=== PATIENT | female | born 1965 | race Caucasian/White ===

== ENCOUNTER 2019-05-08 22:34 | Inpatient (IN) | payer BC ==
[~2019-05-08] VITALS: Ht 162.6 cm; Wt 106.2 kg
[~2019-05-08 22:34] MED LIST: ASPI-831 PO; ATOR-2 PO; Insulin Glargine SC; LEVO250T9 PO; LISI-471 PO; METF-849 PO; NAPR220C2 PO; NOVO3I SC
[2019-05-08 22:44] VITALS: Ht 162.6 cm; Wt 106.2 kg
[2019-05-08] MEDS ORDERED: SOD CHLORIDE 0.9% 100 ML ONE (23:55)
[2019-05-08] MEDS ORDERED: IODIXANOL LOCM 100 ML BTL ONE (23:55)
[2019-05-08] MEDS ORDERED: SODIUM CHLORIDE 0.9% 1L BAG IV* STA (23:56)
[2019-05-09] MEDS ORDERED: POTASSIUM CHLORIDE (SR) 20 MEQ TAB PO STA (02:20)
[2019-05-09] MEDS ORDERED: GLUCOSE GEL 15 GRAM TUBE BUCCAL PRN (02:30)
[2019-05-09] MEDS ORDERED: ASPIRIN 81 MG TAB PO ONE (02:30)
[2019-05-09] MEDS ORDERED: ATORVASTATIN 80 MG TAB PO ONE (02:30)
[2019-05-09] MEDS ORDERED: NACL 0.9% 3 ML SYG IV SCH (02:30)
[2019-05-09] MEDS ORDERED: GLUCOSE GEL 15 GRAM TUBE PO PRN ×2 (02:30)
[2019-05-09] MEDS ORDERED: DOCUSATE SODIUM 100 MG CAP PO PRN (02:30)
[2019-05-09] MEDS ORDERED: ONDANSETRON 4 MG INJ IV PRN ×2 (02:30)
[2019-05-09] MEDS ORDERED: ENALAPRILAT 1.25 MG INJ IV PRN (02:30)
[2019-05-09] MEDS ORDERED: DEXTROSE 50% 50 ML SYRINGE IV PRN ×2 (02:30)
[2019-05-09] MEDS ORDERED: ACETAMINOPHEN 325 MG TAB PO PRN ×2 (02:30)
[2019-05-09] MEDS ORDERED: BISACODYL (EC) 5 MG TAB PO PRN (02:30)
[2019-05-09] MEDS ORDERED: GLUCAGON 1 MG INJ IM PRN (02:30)
--- NOTE | 2019-05-09 02:32 | ERD ---
ER Documentation Chief Complaint Chief Complaint BIB FAMILY W/ C/O NOT BEING ABLE TO SPEAK SINCE 10AM HPI This is a 53-year-old female brought in by daughter since she woke up from this morning unable to speak. Apparently she woke up out of bed and was unable to express herself and was unable to even write words. She does understand with family saying. No focal weakness in the extremities. No fevers no chills. No recent or remote head trauma. No other current issues. Patient herself obviously provides very limited history ROS All systems reviewed and are negative except as per history of present illness. Medications Home Meds Reported Medications Naproxen* (Aleve*) 220 Mg Capsule, 220 MG PO BID, #60 CAP 05/09/19 Allergies Allergies: Coded Allergies: No Known Allergy (Unverified , 05/08/19) PMhx/Soc Medical and Surgical Hx: pt denies Medical Hx History of Surgery: Yes (L HIP REPAIR) Hx Alcohol Use: No Hx Substance Use: No Hx Tobacco Use: Yes Smoking Status: Current every day smoker Physical Exam Vitals Vital Signs Date Temp Pulse Resp B/P (MAP) Pulse Ox O2 O2 Flow FiO2 Time Delivery Rate 05/08/19 87 17 137/75 98 Room Air 23:30 (95) 05/08/19 Nasal 2 23:02 Cannula 05/08/19 99.6 104 20 177/92 98 22:44 (120) Physical Exam Const: No acute distress Head: Atraumatic Eyes: Normal Conjunctiva ENT: Normal External Ears, Nose and Mouth. Neck: Full range of motion. No meningismus. Resp: Clear to auscultation bilaterally Cardio: Regular rate and rhythm, no murmurs Abd: Soft, non tender, non distended. Normal bowel sounds Skin: No petechiae or rashes Back: No midline or flank tenderness Ext: No cyanosis, or edema Neur: Awake and alert Psych: Normal Mood and Affect Result Diagram: 05/08/19225405/08/192254 Results 24 hrs Laboratory Tests Test 05/08/19 22:55 05/08/19 22:57 05/09/19 00:25 05/09/19 01:46 White Blood Count 19.2 10^3/ul Red Blood Count 5.33 10^6/ul Hemoglobin 16.0 g/dl Hematocrit 47.3 % Mean Corpuscular 88.7 fl Volume Mean Corpuscular 30.0 pg Hemoglobin Mean Corpuscular 33.8 g/dl Hemoglobin Concent Red Cell 12.2 % Distribution Width Platelet Count 344 10^3/UL Mean Platelet 10.0 fl Volume Immature 0.500 % Granulocytes % Neutrophils % 69.5 % Lymphocytes % 21.5 % Monocytes % 6.6 % Eosinophils % 1.4 % Basophils % 0.5 % Nucleated Red Blood 0.0 /100WBC Cells % Immature 0.100 10^3/ul Granulocytes # Neutrophils # 13.4 10^3/ul Lymphocytes # 4.1 10^3/ul Monocytes # 1.3 10^3/ul Eosinophils # 0.3 10^3/ul Basophils # 0.1 10^3/ul Nucleated Red Blood 0.0 10^3/ul Cells # Prothrombin Time 13.1 Sec Prothrombin Time 1.0 Ratio INR International 0.98 Normalized Ratio Activated 26.1 Sec Partial Thromboplas t Time Sodium Level 139 mmol/L Potassium Level 3.2 mmol/L Chloride Level 101 mmol/L Carbon Dioxide 27 mmol/L Level Anion Gap 11 Blood Urea Nitrogen 12 mg/dl Creatinine 0.52 mg/dl Est Glomerular > 60 mL/min Filtrat Rate mL/min Glucose Level 285 mg/dl Hemoglobin A1c 10.7 % Calcium Level 8.9 mg/dl Total Bilirubin 0.4 mg/dl Direct Bilirubin 0.00 mg/dl Indirect Bilirubin 0.4 mg/dl Aspartate Amino 37 IU/L Transf (AST/SGOT) Alanine 29 IU/L Aminotransferase (A LT/SGPT) Alkaline 172 IU/L Phosphatase Troponin I < 0.012 ng/ml Total Protein 8.4 g/dl Albumin 3.9 g/dl Globulin 4.50 g/dl Albumin/Globulin 0.86 Ratio Triglycerides Level 175 mg/dl Cholesterol Level 225 mg/dl LDL Cholesterol, 151 mg/dl Calculated HDL Cholesterol 39 mg/dl Cholesterol/HDL 5.7 RATIO Ratio Bedside Glucose 278 mg/dL Urine Color YELLOW Urine Clarity CLEAR Urine pH 6.0 Urine Specific 1.005 [place] Urine Ketones NEGATIVE mg/dL Urine Nitrite NEGATIVE mg/dL Urine Bilirubin NEGATIVE mg/dL Urine Urobilinogen NEGATIVE mg/dL Urine Leukocyte 2+ Robyn/ul Esterase Urine Microscopic 2 /HPF RBC Urine Microscopic 5 /HPF WBC Urine Squamous FEW /HPF Epithelial Cells Urine Bacteria FEW /HPF Urine Hemoglobin 1+ mg/dL Urine Glucose 3+ mg/dL Urine Total Protein NEGATIVE mg/dl Urine Opiates NEGATIVE Screen Urine Barbiturates NEGATIVE Urine Amphetamines NEGATIVE Screen Urine NEGATIVE Benzodiazepines Screen Urine Cocaine NEGATIVE Screen Urine Cannabinoids NEGATIVE POC Venous Lactate 1.5 mmol/L Current Medications Medications Dose Sig/Emily Start Time Status Last (Trade) Ordered Route PRN Stop Time Admin Dose Reason Admin Sodium 100 ml @ ud STK-MED 05/08/19 DC 05/09/19 Chloride ONCE .ROUTE 23:55 05/08/19 00:48 23:56 Iodixanol 100 ml STK-MED 05/08/19 DC 05/09/19 (Visipaque ONCE .ROUTE 23:55 05/08/19 00:47 Locm) 23:56 Sodium 3,080 ml BOLUS OVER 2 05/08/19 DC 05/09/19 Chloride HOURS STAT 23:56 05/09/19 00:58 (NS) IV* 00:01 Ondansetron 4 mg ER BRIDGE 05/09/19 HCl (Zofran PRN IV 02:30 05/10/19 Inj) NAUSEA/VOMITI 02:29 NG 650 mg ER BRIDGE 05/09/19 Acetaminophen PRN PO 02:30 05/10/19 (Tylenol .MILD PAIN 02:29 Tab) 1-3 OR TEMP IV Flush 3 ml PER 05/09/19 (NS 3 ml) PROTOCOL IV 02:30 Ondansetron 4 mg Q6H PRN 05/09/19 HCl (Zofran IV 02:30 Inj) NAUSEA/VOMITI NG Aspirin 81 mg DAILY PO 05/09/19 (Aspirin) 09:00 650 mg Q6H PRN 05/09/19 Acetaminophen PO .PAIN 1-3 02:30 (Tylenol OR TEMP Tab) Docusate 100 mg Q12H PRN 05/09/19 Sodium PO 02:30 (Colace) .CONSTIPATION Bisacodyl 5 mg DAILY PRN 05/09/19 (Dulcolax) PO 02:30 .CONSTIPATION Discontinue ONCE ONCE 05/09/19 DC Miscellaneous current oral XX 02:30 05/09/19 sulfonylur... 02:30 Information (* Miscellaneous Pharmacy Order) Diagnostic 1 ea 02 XX 05/10/19 Test (Pha) 02:00 (Accu-Chek) ONCE ONCE 05/09/19 DC Miscellaneous HYPOGLYCEMIA XX 02:30 05/09/19 PROTOCOL 02:30 Information w... (* Miscellaneous Pharmacy Order) Insulin NOVOLOG Q4 SC 05/09/19 DC Aspart *MILD* 05:00 05/09/19 (Novolog ALGORI... 05:00 Insulin Pen) Discontinue ONCE ONCE 05/09/19 DC Miscellaneous all previ... XX 02:30 05/09/19 02:30 Information (* Miscellaneous Pharmacy Order) Ceftriaxone 50 ml @ Q24H IVPB 05/09/19 Sodium 100 mls/hr 02:30 Insulin 10 units DAILY@2000 05/09/19 Glargine SC 20:00 (Lantus) Discontinue ONCE ONCE 05/09/19 DC Miscellaneous current oral XX 02:30 05/09/19 sulfonylur... 02:30 Information (* Miscellaneous Pharmacy Order) Diagnostic 1 ea 02 XX 05/10/19 DC Test (Pha) 02:00 05/10/19 (Accu-Chek) 02:00 ONCE ONCE 05/09/19 DC Miscellaneous HYPOGLYCEMIA XX 02:30 05/09/19 PROTOCOL 02:30 Information w... (* Miscellaneous Pharmacy Order) Insulin NOVOLOG WITH MEALS 05/09/19 Aspart *MILD* BEDTIME SC 08:00 (Novolog ALGORITHM Insulin Pen) Discontinue ONCE ONCE 05/09/19 DC Miscellaneous all previ... XX 02:30 05/09/19 02:30 Information (* Miscellaneous Pharmacy Order) Aspirin 162 mg ONCE ONCE 05/09/19 (Aspirin) PO 02:30 05/09/19 02:31 80 mg ONCE ONCE 05/09/19 Atorvastatin PO 02:30 05/09/19 Calcium 02:31 (Lipitor) 80 mg HS PO 05/10/19 Atorvastatin 21:00 Calcium (Lipitor) Potassium 40 meq ONCE STAT 05/09/19 DC Chloride PO 02:20 05/09/19 (Klor-Con 20) 02:26 Lisinopril 20 mg DAILY PO 05/09/19 (Zestril) 09:00 1 ea NOTE XX 05/09/19 Miscellaneous 02:30 Information Glucose 15 gm Q15M PRN 05/09/19 (Glutose) PO DECREASED 02:30 GLUCOSE Glucose 22.5 gm Q15M PRN 05/09/19 (Glutose) PO DECREASED 02:30 GLUCOSE Dextrose 25 ml Q15M PRN 05/09/19 (D50w IV DECREASED 02:30 Syringe) GLUCOSE Dextrose 50 ml Q15M PRN 05/09/19 (D50w IV DECREASED 02:30 Syringe) GLUCOSE Glucagon 1 mg Q15M PRN 05/09/19 (Glucagen) IM DECREASED 02:30 GLUCOSE Glucose 15 gm Q15M PRN 05/09/19 (Glutose) BUCCAL 02:30 DECREASED GLUCOSE Procedures/MDM EKG: Rate/Rhythm: Normal Sinus Rhythm QRS, ST, T-waves: No changes consistent w/ acute ischemia Impression: No evidence of ischemia or arrhythmia Chest X-ray 1V Interpreted by me: Soft Tissue: No acute abnormalities Bones: No acute abnormalities Mediastinum/Cardiac Silhouette/Lungs: No acute abnormalities CT of the head and CT as you are consistent with a frontal infarct with no evidence of thrombus formation. Ultrasound of the carotids are both negative essentially. Medical decision making: This is a 53-year-old female has evidence of a subacute stroke. She does not meet TPA criteria based on her timeframe, and she also does not meet criteria for endoscopic retrieval class as her CT Denia was negative. Patient will be admitted to telemetry setting to Dr. Newton the hospitalist for further evaluation management and specialist consultation. Critical Care: Time: 45 minutes, independent of any separately billable p rocedural time Treatments/Evaluations: Close monitoring and treatment of unstable vital signs, cardiorespiratory, and neurologic status, while maintaining tight balance of fluid, respiratory, and cardiac interventions. Departure Diagnosis: Primary Impression: Stroke CVA mechanism: unspecified Qualified Codes: I63.9 - Cerebral infarction, unspecified Condition: Critical FERDINAND COLLINS May 09, 2019 02:32
[2019-05-09] MEDS ORDERED: ACCU-CHEK XX SCH (03:00)
[2019-05-09] MEDS ORDERED: INSULIN LISPRO 100 UNIT/ML VIAL SC ONE (03:00)
[2019-05-09 04:00] VITALS: BP 124/56; PULSE 66; RESP 18
[2019-05-09] MEDS ORDERED: INSULIN ASPART [NOVOLOG] 3 ML PEN SC SCH (05:00)
--- NOTE | 2019-05-09 05:25 | HP ---
Date/Time of Note Date/Time of Note DATE: 05/09/19 TIME: 05:24 Assessment/Plan VTE Prophylaxis SCD applied (from Nsg): Yes Pharmacological prophylaxis: NA/contraindicated Pharm contraindication: low risk/ambulating Lines/Catheters IV Catheter Type (from Nrsg): Saline Lock Assessment/Plan Hospital Course This is a 53 a female being admitted to the telemetry floor for: #1 CVA: Patient was not a TPA candidate as she presented outside of the window. CT of the brain did show signs of infarct. We will proceed with an MRI of the brain and MRA of the head and neck. We will give the patient high dose of aspirin along with daily aspirin. Will start on high-dose statin. Hemoglobin A1c 10.7 will need to initiate diabetes medication regimen. PT OT speech therapy evaluation. Permissive hypertension until 12 PM has initial event occurred approximately 10 AM on 05 08. With the first will consult neurology . #2 newly diagnosed diabetes mellitus: Apparently patient does not have a history of diabetes mellitus. Hemoglobin A1c is 10.7. Will initiate the patient on Lantus, insulin sliding scale. We will need to optimize patient's blood sugars during admission. Given likely concurrent hypertension we will also initiate lisinopril to be started at approximately 12 PM to complete the permissive hypertension timeframe #3 uncontrolled hypertension: Currently patient is under permissive hypertension until approximately 12 PM. Will initiate lisinopril given concurrent diabetes. Titrate as indicated. #4 hyperlipidemia: High-dose atorvastatin #5 morbid obesity: We will need to optimize patient's blood sugars, will check a TSH level, initiate statin. Encouraged lifestyle and dietary modification #6 leukocytosis: No signs of acute infection. Patient afebrile. This likely reactive. Will monitor #7 Urinary tract infection: Ceftriaxone IV, await urine culture results #8 DVT GI prophylaxis: SCDs, no GI prophylaxis indicated Further treatment strategy will be implemented as per the clinical course. Result Diagram: 05/08/19225405/08/192254 Results 24hrs Laboratory Tests Test 05/08/19 22:55 05/08/19 22:57 05/09/19 00:25 05/09/19 01:46 White Blood Count 19.2 H Red Blood Count 5.33 Hemoglobin 16.0 Hematocrit 47.3 H Mean Corpuscular Volume 88.7 Mean Corpuscular 30.0 Hemoglobin Mean Corpuscular 33.8 Hemoglobin Concent Red Cell Distribution 12.2 Width Platelet Count 344 Mean Platelet Volume 10.0 Immature Granulocytes % 0.500 H Neutrophils % 69.5 Lymphocytes % 21.5 Monocytes % 6.6 Eosinophils % 1.4 Basophils % 0.5 Nucleated Red Blood 0.0 Cells % Immature Granulocytes # 0.100 H Neutrophils # 13.4 H Lymphocytes # 4.1 H Monocytes # 1.3 H Eosinophils # 0.3 Basophils # 0.1 Nucleated Red Blood 0.0 Cells # Prothrombin Time 13.1 Prothrombin Time Ratio 1.0 INR International 0.98 Normalized Ratio Activated 26.1 Partial Thromboplast Time Sodium Level 139 Potassium Level 3.2 L Chloride Level 101 Carbon Dioxide Level 27 Anion Gap 11 Blood Urea Nitrogen 12 Creatinine 0.52 Est Glomerular Filtrat > 60 Rate mL/min Glucose Level 285 H Hemoglobin A1c 10.7 H Calcium Level 8.9 Total Bilirubin 0.4 Direct Bilirubin 0.00 Indirect Bilirubin 0.4 Aspartate Amino 37 Transf (AST/SGOT) Alanine 29 Aminotransferase (ALT/SG PT) Alkaline Phosphatase 172 H Troponin I < 0.012 Total Protein 8.4 H Albumin 3.9 Globulin 4.50 H Albumin/Globulin Ratio 0.86 Triglycerides Level 175 H Cholesterol Level 225 H LDL Cholesterol, 151 Calculated HDL Cholesterol 39 Cholesterol/HDL Ratio 5.7 Bedside Glucose 278 H Urine Color YELLOW Urine Clarity CLEAR Urine pH 6.0 Urine Specific [place] 1.005 Urine Ketones NEGATIVE Urine Nitrite NEGATIVE Urine Bilirubin NEGATIVE Urine Urobilinogen NEGATIVE Urine Leukocyte Esterase 2+ H Urine Microscopic RBC 2 Urine Microscopic WBC 5 Urine Squamous FEW Epithelial Cells Urine Bacteria FEW A Urine Hemoglobin 1+ H Urine Glucose 3+ H Urine Total Protein NEGATIVE Urine Opiates Screen NEGATIVE Urine Barbiturates NEGATIVE Urine Amphetamines NEGATIVE Screen Urine Benzodiazepines NEGATIVE Screen Urine Cocaine Screen NEGATIVE Urine Cannabinoids NEGATIVE POC Venous Lactate 1.5 HPI/ROS Admit Date/Time Admit Date/Time May 09, 2019 at 02:04 Hx of Present Illness Chief complaint: Unable to speak, right This is a 53-year-old female with apparently no significant past medical history who presented to the emergency department with an inability to speak. Patient presented with her daughter. Patient's daughter reported that approximately yesterday on 05 08 at 10 AM how the last time patient was known known to be at her baseline. She stated that her mom was unable to speak. She was then later on had difficulty writing. Patient at the current time does respond to questions but only with yes and no. He denies any pain. Denies any head trauma. Allergies: NKDA medications: None ROS Const: As per HPI Eyes : No pain discharge or redness or change in visual acuity ENT: No pain, sore throat, congestion, congestion, dysphagia or discharge Respiratory: No shortness of breath, cough, sputum, wheezing, or pleuritic pain Cardiovascular: No chest pain, palpitation, PND, or edema GI : no change in appetite, abdominal pain, nausea, vomiting, diarrhea, constipation, or change in the color his stool Genitourinary: No dysuria, hematuria, flank pain , discharge or CVA tenderness Musculoskeletal: No joint pain, back pain, neck pain, restricted range of motion in neck or joints Skin: No rash, bruising or hives Neuro: As per HPI Endocrine: No polyuria, polydipsia, temperature intolerance Psych: No hallucination, depression, anxiety or suicidal ideation PMH/Family/Social Past Medical History Medical History: no pertinent history Medications Current Medications Ondansetron HCl (Zofran Inj) 4 mg ER BRIDGE PRN IV NAUSEA/VOMITING; Start 05/09 at 02:30; Stop 05/10/19 at 02:29 IV Flush (NS 3 ml) 3 ml PER PROTOCOL IV ; Start 05/09/19 at 02:30 Ondansetron HCl (Zofran Inj) 4 mg Q6H PRN IV NAUSEA/VOMITING; Start 05/09/19 at 02:30 Aspirin (Aspirin) 81 mg DAILY PO ; Start 05/09/19 at 09:00 Acetaminophen (Tylenol Tab) 650 mg Q6H PRN PO .PAIN 1-3 OR TEMP; Start 05/09/19 at 02:30 Docusate Sodium (Colace) 100 mg Q12H PRN PO .CONSTIPATION; Start 05/09/19 at 02:30 Bisacodyl (Dulcolax) 5 mg DAILY PRN PO .CONSTIPATION; Start 05/09/19 at 02:30 Diagnostic Test (Pha) (Accu-Chek) XX ; Start 05/10/19 at 02:00 Ceftriaxone Sodium 50 ml @ 100 mls/hr Q24H IVPB ; Start 05/09/19 at 02:30 Insulin Glargine (Lantus) 10 units DAILY@2000 SC ; Start 05/09/19 at 20:00 Insulin Aspart (Novolog Insulin Pen) NOVOLOG *MILD* ALGORITHM WITH MEALS BEDTIME SC ; Start 05/09/19 at 07:55 Atorvastatin Calcium (Lipitor) 80 mg HS PO ; Start 05/10/19 at 21:00 Lisinopril (Zestril) 20 mg DAILY PO ; Start 05/09/19 at 09:00 Miscellaneous Information 1 ea NOTE XX ; Start 05/09/19 at 02:30 Glucose (Glutose) 15 gm Q15M PRN PO DECREASED GLUCOSE; Start 05/09/19 at 02:30 Glucose (Glutose) 22.5 gm Q15M PRN PO DECREASED GLUCOSE; Start 05/09/19 at 02:30 Dextrose (D50w Syringe) 25 ml Q15M PRN IV DECREASED GLUCOSE; Start 05/09/19 at 02:30 Dextrose (D50w Syringe) 50 ml Q15M PRN IV DECREASED GLUCOSE; Start 05/09/19 at 02:30 Glucagon (Glucagen) 1 mg Q15M PRN IM DECREASED GLUCOSE; Start 05/09/19 at 02:30 Glucose (Glutose) 15 gm Q15M PRN BUCCAL DECREASED GLUCOSE; Start 05/09/19 at 02:30 Enalaprilat (Vasotec Iv) 1.25 mg Q4H PRN IV ELEVATED BLOOD PRESSURE; Start 05/09/19 at 02:30 Coded Allergies: No Known Allergy (Unverified , 05/08/19) Past Surgical History Left hip surgery, x1 Family History Significant Family History: no pertinent family hx Social History Alcohol Use: none Smoking Status: Unknown if ever smoked Drug Use: none Exam/Review of Systems Vital Signs Vitals Vital Signs Date Temp Pulse Resp B/P (MAP) Pulse Ox O2 O2 Flow FiO2 Time Delivery Rate 05/09/19 98.4 66 18 124/56 97 04:00 (78) 05/09/19 Room Air 03:30 05/08/19 2 23:02 Exam Exam General: Currently lying in bed in no acute distress, patient has difficulty verbalizing, she does respond yes and no to questions HEENT: Atraumatic, normocephalic. The pupils are equal, round and reactive. Extraocular motor are intact Neck: Supple with full range of motion. No rigidity or meningismus Chest: Nontender Lungs: Clear to auscultation bilaterally no crackles rales or wheezing Heart: Normal S1-S2, Regular rhythm and rate. No murmur, S3, or S4 Abdomen: Morbidly obese, soft , nontender, nondistended , bowel sounds are present. No guarding no rebound tenderness , No masses or organomegaly. No costovertebral temporal angle mass Extremities: Normal to inspection, no edema no cyanosis Neurologic: Responds to yes and no, otherwise has a aphasia, cranial nerves II through XII are intact, motor and sensory are intact, no focal weakness, no pronator drift, 5 out of 5 strength in bilateral upper and lower extremities. Additional Comments Normal sinus rhythm at approximately 97 bpm, no ST or T wave abnormalities concerning for acute ischemia EKG: PROCEDURE: CT brain without contrast. CLINICAL INDICATION: Stroke. TECHNIQUE: CT scan of the brain was performed on a multi-detector high- resolution CT scanner. Contiguous axial images were obtained from the skull base to the vertex without intravenous contrast. Coronal and sagittal reformatted images were also obtained. Images were reviewed on the PACS workstation. DICOM images are available. One or more of the following dose reduction techniques were used: - Automated exposure control. - Adjustment of the mA and/or kV according to patient size. - Use of iterative reconstruction technique. Exam CTD/vol = 39.64 mGy. Total exam DLP = 713.51 mGy-cm. COMPARISON: None. FINDINGS: There is a poorly defined area of low attenuation within the left frontal lobe involving the cortex. The ventricles and cortical sulci are prominent consistent with mild age related volume loss. There are patchy areas of low attenuation within the periventricular and subcortical white matter consistent with mild chronic ischemic changes secondary to small vessel disease. There is no mass effect or midline shift. There is no intracranial hemorrhage or abnormal extra- axial collection. There are atherosclerotic calcifications within bilateral distal internal carotid arteries. The calvarium is intact. There is no evidence of fracture. Visualized paranasal sinuses and mastoid air cells are clear. IMPRESSION: Left frontal lobe infarct, age indeterminate. Clinical correlation is recom mended and further evaluation can be made by MRI. There is no significant midline shift or intracranial hemorrhage. Mild age related volume loss and chronic ischemic white matter disease. Mild cerebral atherosclerosis. A call report was made to Dr. Collins at 12:50 a.m. .Feliciano Luz MD, MD Date Time Electronically viewed and signed by .Feliciano Luz MD, MD on 05/09/2019 00:52 .T/ CC: FERDINAND COLLINS [id number] PROCEDURE: Ultrasound examination of the carotid arteries with Doppler. CLINICAL INDICATION: Stroke. TECHNIQUE: Real time sonography, color Doppler and spectral the pattern analysis and velocity measurements were performed to evaluate both carotid arterial system. COMPARISON: None. FINDINGS: There is no significant atherosclerotic plaque within the right carotid bifurcation region. There is no significant atherosclerotic plaque within the left carotid bifurcation region. There is no hemodynamically significant caroti d stenosis bilaterally. Antegrade flow is demonstrated within bilateral vertebral arteries. RIGHT PSV (cm/s) EDV (cm/s) ICA/CCA ratio CCA 52.7 16.4 1.3 PICA 80.2 21.9 TOMÁS 80.2 27.4 DICA 75.8 26.3 ECA 116.3 LEFT PSV (cm/s) EDV (cm/s) ICA/CCA ratio CCA 86.7 25.8 1.4 PICA 69.9 24.5 TOMSÁ 76.4 29.7 DICA 85.4 32.3 ECA 115.2 IMPRESSION: No evidence for hemodynamically significant stenosis - validated velocity measurements with angiographic measurements, velocity criteria are extrapolated from diameter data as defined by the Society of Radiologists in Ultrasound Consensus Conference Radiology 2003; 229;340-346. This study does indirectly reference the measurement of the distal ICA diameter as the denominator for stenosis measurement. Antegrade flow within bilateral vertebral arteries. .Feliciano Luz MD, MD Date Time Electronically viewed and signed by .Feliciano Luz MD, MD on 05/08/2019 23:54 .T/ CC: FERDINAND COLLINS [id number] PROCEDURE: Chest. CLINICAL INDICATION: Chest pain. TECHNIQUE: Single frontal view of the chest was obtained. COMPARISON: None. FINDINGS: The cardiac silhouette is within normal limits. The aortic arch is unremarkable. There is no focal consolidation, vascular congestion or pleural effusion. There is no pneumothorax. IMPRESSION: No evidence for active cardiopulmonary disease. .Feliciano Luz MD, MD Date Time Electronically viewed and signed by .Feliciano Luz MD, MD on 05/08/2019 23:23 .T/ CC: FERDINAND COLLINS [id number] ROCEDURE: CT angiogram of the head and neck with contrast. CLINICAL INDICATION: Stroke. TECHNIQUE: CT angiogram of the head and neck was performed on a multi- detector high-resolution CT scanner. Contiguous axial images were obtained after the dynamic injection of 120 cc Visipaque 320 intravenous contrast. Coronal and sagittal as well as maximal intensity projection reformations were obtained. 3-D post processing was also performed. Images were reviewed on a PACS workstation. DICOM images are available. One or more of the following dose reduction techniques were used: - Automated exposure control. - Adjustment of the mA and/or kV according to patient size. - Use of iterative reconstruction technique. Exam CTD/vol = 20.55 mGy. Total exam DLP = 810.61 mGy-cm. COMPARISON: None. FINDINGS: Neck: The visualized aortic arch and proximal great vessels are within normal limits. Bilateral common carotid arteries are normal course and caliber. [place] ateral carotid bulbs and bifurcations are within normal limits. Bilateral internal and external carotid arteries are of normal course and caliber. Bilateral vertebral arteries are of normal course and caliber. There is no significant stenosis or occlusion. There is no evidence of aneurysm or dis section. Brain: Bilateral distal internal carotid arteries are normal course and caliber with scattered atherosclerotic calcifications. Bilateral anterior and middle cerebral arteries are within normal limits. Bilateral distal vertebral arteries are of normal course and caliber. The basilar artery is intact. Bilateral posterior cerebral arteries are within normal limits. There is no significant stenosis or occlusion. There is no evidence of aneurysm or vascular malformation. The venous structures are unremarkable. IMPRESSION: Mild cerebral atherosclerosis. Otherwise unremarkable CT angiogram of the head and neck. No hemodynamically significant carotid stenosis. Direct measurements of vessel diameter was made in reference to measurements of the distal internal carotid artery diameter per NASCET criteria. .Feliciano Luz MD, Date Time Electronically viewed and signed by .Feliciano Luz MD, MD on 05/09/2019 00:52 .T/ CC: FERDINAND COLLINS [id number] VISH POLLOCK May 09, 2019 05:25
[2019-05-09] MEDS: CEFTRIAXONE 1 GM/50 ML (PMX) 50 ML IVPB SCH (06:43)
[2019-05-09 07:54] VITALS: BP 138/63; RESP 18
[2019-05-09] MEDS ORDERED: MAGNESIUM SULFATE 2 GM/50 ML 50 ML IVPB ONE (09:00)
[2019-05-09] MEDS ORDERED: LISINOPRIL 20 MG TAB PO SCH (09:00)
[2019-05-09] MEDS: INSULIN ASPART [NOVOLOG] 3 ML PEN SC SCH ×4 (09:11→21:00)
[2019-05-09] MEDS: ASPIRIN 81 MG TAB PO SCH (09:14)
--- NOTE | 2019-05-09 10:32 | CONSI ---
Assessment/Plan Assessment/Plan Assessment/Plan (Recall) 53 F s/ reported PMHx, who presents for evaluation of sudden aphasia c/f stroke. Head CT confirms age indeterminate L frontal ischemia.. CTA h/n is notable for mild athero.. A1C > 10 LDL > 150 UDS neg P: MRI brain for further characterization (no need for MRAs) Await echo read Add ESR, RPR Agree w/ asa/lipitor for secondary stroke prevention for now Other risk factor modification per primary ST/OT/PT as necessary Will follow Consultation Date/Type/Reason Admit Date/Time May 09, 2019 at 02:04 Type of Consult Neurology Reason for Consultation aphasia Requesting Provider: VISH POLLOCK Date/Time of Note DATE: 05/09/19 TIME: 10:26 Hx of Present Illness Patient is aphasic..unable to contribute a Hx.. It is elsewhere noted: This is a 53-year-old female with apparently no significant past medical history who presented to the emergency department with an inability to speak. Patient presented with her daughter. Patient's daughter reported that approximately yesterday on 05 08 at 10 AM how the last time patient was known known to be at her baseline. She stated that her mom was unable to speak. She was then later on h ad difficulty writing. Patient at the current time does respond to questions but only with yes and no. He denies any pain. Denies any head trauma. limited by aphasia Objective Exam Vitals Vital Signs Date Temp Pulse Resp B/P (MAP) Pulse Ox O2 O2 Flow FiO2 Time Delivery Rate 05/09/19 Room Air 08:25 05/09/19 98.5 18 138/63 94 07:54 (88) 05/09/19 2.0 05:54 05/09/19 66 04:00 Exam PE: Gen Appearance: No Apparent Distress HEENT: Normocephalic Cardiovascular: Regular rate Abdomen: Soft Extremities: Dry NE: The patient was alert.. Language was nonfluent. Fund of knowledge was kolton. Pupils were equal and reactive to light. There was no afferent pupillary defect. Visual landry were normal. Funduscopic examination was limited. Extra-ocular movements were full. Ptosis was absent. There was no nystagmus. Facial sensation was normal. Face was symmetric with normal strength. Hearing was intact. Palate movements were normal. Neck strength was normal. There was normal tongue bulk and speed of movement. Tone was normal. Muscle bulk was normal. I did not see fasciculations. Arms and legs were strong. Vibration sensation was normal. Temperature and pinprick sensation was normal. Rapid alternating movements were normal. There was no dysmetria. There was no intention tremor. Gait was deferred due to bedrest. Arm and leg reflexes were symmetric. Harper's sign was absent. Plantar responses were flexor. Results Result Diagram: 05/09/19 0554 05/09/19 0554 Results 24hrs Laboratory Tests Test 05/08/19 22:55 05/08/19 22:57 05/09/19 00:25 05/09/19 01:46 White Blood Count 19.2 H Red Blood Count 5.33 Hemoglobin 16.0 Hematocrit 47.3 H Mean Corpuscular Volume 88.7 Mean Corpuscular 30.0 Hemoglobin Mean Corpuscular 33.8 Hemoglobin Concent Red Cell Distribution 12.2 Width Platelet Count 344 Mean Platelet Volume 10.0 Immature Granulocytes % 0.500 H Neutrophils % 69.5 Lymphocytes % 21.5 Monocytes % 6.6 Eosinophils % 1.4 Basophils % 0.5 Nucleated Red Blood 0.0 Cells % Immature Granulocytes # 0.100 H Neutrophils # 13.4 H Lymphocytes # 4.1 H Monocytes # 1.3 H Eosinophils # 0.3 Basophils # 0.1 Nucleated Red Blood 0.0 Cells # Prothrombin Time 13.1 Prothrombin Time Ratio 1.0 INR International 0.98 Normalized Ratio Activated 26.1 Partial Thromboplast Time Sodium Level 139 Potassium Level 3.2 L Chloride Level 101 Carbon Dioxide Level 27 Anion Gap 11 Blood Urea Nitrogen 12 Creatinine 0.52 Est Glomerular Filtrat > 60 Rate mL/min Glucose Level 285 H Hemoglobin A1c 10.7 H Calcium Level 8.9 Total Bilirubin 0.4 Direct Bilirubin 0.00 Indirect Bilirubin 0.4 Aspartate Amino 37 Transf (AST/SGOT) Alanine 29 Aminotransferase (ALT/SG PT) Alkaline Phosphatase 172 H Troponin I < 0.012 Total Protein 8.4 H Albumin 3.9 Globulin 4.50 H Albumin/Globulin Ratio 0.86 Triglycerides Level 175 H Cholesterol Level 225 H LDL Cholesterol, 151 Calculated HDL Cholesterol 39 Cholesterol/HDL Ratio 5.7 Bedside Glucose 278 H Urine Color YELLOW Urine Clarity CLEAR Urine pH 6.0 Urine Specific [place] 1.005 Urine Ketones NEGATIVE Urine Nitrite NEGATIVE Urine Bilirubin NEGATIVE Urine Urobilinogen NEGATIVE Urine Leukocyte Esterase 2+ H Urine Microscopic RBC 2 Urine Microscopic WBC 5 Urine Squamous FEW Epithelial Cells Urine Bacteria FEW A Urine Hemoglobin 1+ H Urine Glucose 3+ H Urine Total Protein NEGATIVE Urine Opiates Screen NEGATIVE Urine Barbiturates NEGATIVE Urine Amphetamines NEGATIVE Screen Urine Benzodiazepines NEGATIVE Screen Urine Cocaine Screen NEGATIVE Urine Cannabinoids NEGATIVE POC Venous Lactate 1.5 Test 05/09/19 05:54 05/09/19 08:39 White Blood Count 15.4 H Red Blood Count 4.73 Hemoglobin 14.1 Hematocrit 42.5 Mean Corpuscular Volume 89.9 Mean Corpuscular 29.8 Hemoglobin Mean Corpuscular 33.2 Hemoglobin Concent Red Cell Distribution 12.3 Width Platelet Count 280 Mean Platelet Volume 10.2 Immature Granulocytes % 0.500 H Neutrophils % 66.8 Lymphocytes % 23.5 Monocytes % 6.9 Eosinophils % 1.9 Basophils % 0.4 Nucleated Red Blood 0.0 Cells % Immature Granulocytes # 0.080 H Neutrophils # 10.3 H Lymphocytes # 3.6 H Monocytes # 1.1 H Eosinophils # 0.3 Basophils # 0.1 Nucleated Red Blood 0.0 Cells # Sodium Level 142 Potassium Level 3.2 L Chloride Level 107 Carbon Dioxide Level 29 Anion Gap 6 Blood Urea Nitrogen 7 Creatinine 0.47 Est Glomerular Filtrat > 60 Rate mL/min Glucose Level 180 # Calcium Level 8.0 L Magnesium Level 1.6 L Total Bilirubin 0.6 Direct Bilirubin 0.00 Indirect Bilirubin 0.6 Aspartate Amino 28 Transf (AST/SGOT) Alanine 28 Aminotransferase (ALT/SG PT) Alkaline Phosphatase 129 H Total Protein 6.9 # Albumin 3.0 L Globulin 3.90 H Albumin/Globulin Ratio 0.76 Thyroid Stimulating 1.750 Hormone (TSH) Bedside Glucose 192 Past Medical History Medical History: other (no reported medical Hx..) Home Meds Reported Medications Naproxen* (Aleve*) 220 Mg Capsule, 220 MG PO BID, #60 CAP 05/09/19 Medications Current Medications Ondansetron HCl (Zofran Inj) 4 mg ER BRIDGE PRN IV NAUSEA/VOMITING; Start 05/09/19 at 02:30; Stop 05/10/19 at 02:29 IV Flush (NS 3 ml) 3 ml PER PROTOCOL IV ; Start 05/09/19 at 02:30 Ondansetron HCl (Zofran Inj) 4 mg Q6H PRN IV NAUSEA/VOMITING; Start 05/09/19 at 02:30 Aspirin (Aspirin) 81 mg DAILY PO Last administered on 05/09/19at 09:14; Admin Dose 81 MG; Start 05/09/19 at 09:00 Acetaminophen (Tylenol Tab) 650 mg Q6H PRN PO .PAIN 1-3 OR TEMP; Start 05/09/19 at 02:30 Docusate Sodium (Colace) 100 mg Q12H PRN PO .CONSTIPATION; Start 05/09/19 at 02:30 Bisacodyl (Dulcolax) 5 mg DAILY PRN PO .CONSTIPATION; Start 05/09/19 at 02:30 Diagnostic Test (Pha) (Accu-Chek) 1 ea 02 XX ; Start 05/10/19 at 02:00 Ceftriaxone Sodium 50 ml @ 100 mls/hr Q24H IVPB Last administered on 05/09/19at 06:43; Admin Dose 100 MLS/HR; Start 05/09/19 at 02:30 Insulin Glargine (Lantus) 10 units DAILY@2000 SC ; Start 05/09/19 at 20:00 Insulin Aspart (Novolog Insulin Pen) NOVOLOG *MILD* ALGORITHM WITH MEALS BEDTIME SC Last administered on 05/09/19at 09:11; Admin Dose 2 UNIT; Start 05/09/19 at 07:55 Atorvastatin Calcium (Lipitor) 80 mg HS PO ; Start 05/10/19 at 21:00 Miscellaneous Information 1 ea NOTE XX ; Start 05/09/19 at 02:30 Glucose (Glutose) 15 gm Q15M PRN PO DECREASED GLUCOSE; Start 05/09/19 at 02:30 Glucose (Glutose) 22.5 gm Q15M PRN PO DECREASED GLUCOSE; Start 05/09/19 at 02:30 Dextrose (D50w Syringe) 25 ml Q15M PRN IV DECREASED GLUCOSE; Start 05/09/19 at 02:30 Dextrose (D50w Syringe) 50 ml Q15M PRN IV DECREASED GLUCOSE; Start 05/09/19 at 02:30 Glucagon (Glucagen) 1 mg Q15M PRN IM DECREASED GLUCOSE; Start 05/09/19 at 02:30 Glucose (Glutose) 15 gm Q15M PRN BUCCAL DECREASED GLUCOSE; Start 05/09/19 at 02:30 Enalaprilat (Vasotec Iv) 1.25 mg Q4H PRN IV ELEVATED BLOOD PRESSURE; Start 05/09/19 at 02:30 Magnesium Sulfate 50 ml @ 25 mls/hr ONCE ONCE IVPB Last administered on 05/09/19at 09:13; Admin Dose 25 MLS/HR; Start 05/09/19 at 09:00; Stop 05/09/19 at 10:59 Lisinopril (Zestril) 20 mg DAILY PO ; Start 05/09/19 at 12:00 Allergies: Coded Allergies: No Known Allergy (Unverified , 05/08/19) Social History Alcohol Use: none Smoking Status: Unknown if ever smoked Drug Use: none COREY ANDRES May 09, 2019 10:32
[2019-05-09 11:06] VITALS: BP 122/57; PULSE 74; RESP 18
--- NOTE | 2019-05-09 12:01 | RADRPT ---
Echocardiogram Report Patient Name: CONSUELO JOEPatient ID: [id number] : 10 (53y 9m)Study Date: 05/09/2019 7:26:44 AM Gender: FAccession #: [id number] Tech: JarrodKathleen Bagley [facility] Location: [id number] Ref.Physician: VISH POLLOCK Height(Cm): BSA: Weight(Kg): Quality: AdequateOrder Physician: VISH POLLOCK Account #: Report amended on 2019-05-09 at 2:33 PM: Added/Modified: Atrial Septum: [ADDED] Bubble study: Bubble study was performed with and with out valsalva indicating no evidence of intra atrial shunt. Conclusions: [ADDED] Atrial Septum Findings: Bubble study was performed with and with out valsalva indicating no evidence of intra atrial shunt. [MODIFIED TEXT] Conclusions: Normal left ventricular systolic function. Normal left ventricular cavity size. Normal left ventricular wall thickness. Ejection fraction is visually estimated at 65 %. Tissue Doppler/Mitral Doppler indices are within normal limits. No significant valvular stenosis or regurgitation seen. The estimated Peak RVSP is 24 mmHg. Normal size and normal respiratory collapse consistent with normal right atrial pressure. Bubble study was performed with and with out valsalva indicating no evidence of intra atrial shunt. [MODIFIED TEXT] Conclusions: Normal left ventricular systolic function. Normal left ventricular cavity size. Normal left ventricular wall thickness. Ejection fraction is visually estimated at 65 %. Tissue Doppler/Mitral Doppler indices are within normal limits. No significant valvular stenosis or regurgitation seen. The estimated Peak RVSP is 24 mmHg. Normal size and normal respiratory collapse consistent with normal right atrial pressure. Bubble study was performed with and with out valsalva indicating no evidence of intra atrial shunt. Electronically Signed by: Ok Jacques 2019-05-09 14:33:50 PDT End of Addendum Procedures: Echocardiographic Report: Transthoracic echocardiogram with complete 2D, M-Mode, and doppler examination. Indications: Cerebrovascular Accident. Measurements: 2D/M Mode Doppler Measurement Value Normal Range Measurement Value Normal Range LVIDd 2D 4.4 [ 3.8 - 5.2 ] cm AV Peak Alex 1.7 [ 100.0 - 170.0 ] cm/sec LVIDs 2D 2.3 [ 2.2 - 3.5 ] cm AV Peak PG 12.0 [ 2.0 - 9.0 ] mmHg LVPWd 2D 1.0 [ 0.6 - 0.9 ] cm LVOT Peak Alex 1.2 [ 70.0 - 110.0 ] cm/sec IVSd 2D 1.0 [ 0.6 - 0.9 ] cm LVOT Peak PG 6.0 [ 2.0 - 6.0 ] mmHg AoR Diam 2D 2.7 [ 2.3 - 3.1 ] cm MV E Peak Alex 0.6 [ 60.0 - 130.0 ] cm/sec EDV 2D 89.6 [ 46.0 - 106.0 ] ml MV A Peak Alex 0.9 [ 100.0 - 120.0 ] cm/sec ESV 2D 17.1 [ 14.0 - 42.0 ] ml MV E/A 0.7 [ 0.8 - 1.5 ] ratio EF 2D 80.9 [ 54.0 - 74.0 ] percent MV Decel Time 208 [ 104 - 258 ] msec LA Dimen 2D 3.8 [ 2.7 - 3.8 ] cm Lat E` Alex 0.1 [ 10.0 - 15.0 ] cm/sec Lateral E/E` 6.8 [ 1.0 - 2.0 ] ratio MV E/A 0.7 [ 0.8 - 1.5 ] ratio TR Peak Alex 2.3 [ 100.0 - 280.0 ] cm/sec TR Peak PG 21.0 mmHg RVSP 24.0 [ 10.0 - 36.0 ] mmHg RA Pressure 3.0 mmHg Findings: Left Ventricle: Normal left ventricular systolic function. Normal left ventricular cavity size. Normal left ventricular wall thickness. Ejection fraction is visually estimated at 65 %. Tissue Doppler/Mitral Doppler indices are within normal limits. Right Ventricle: Normal right ventricular size. Normal right ventricular systolic function. Left Atrium: There is mild enlargement of left atrium. Right Atrium: The right atrium is normal in size. Atrial Septum: Bubble study was performed with and with out valsalva indicating no evidence of intra atrial shunt. Mitral Valve: Normal appearance and function of the mitral valve with trace physiologic regurgitation. Aortic Valve: No significant aortic stenosis or insufficiency. Tricuspid Valve: Normal appearance and function of the tricuspid valve with trace physiologic regurgitation. Normal right ventricular systolic pressure. The estimated Peak RVSP is 24 mmHg. Pulmonic Valve: Pulmonic valve not well visualized. Pericardium: Normal pericardium with no significant pericardial effusion. Aorta: Normal aortic root. IVC: Normal size and normal respiratory collapse consistent with normal right atrial pressure. Conclusions: Normal left ventricular systolic function. Normal left ventricular cavity size. Normal left ventricular wall thickness. Ejection fraction is visually estimated at 65 %. Tissue Doppler/Mitral Doppler indices are within normal limits. No significant valvular stenosis or regurgitation seen. The estimated Peak RVSP is 24 mmHg. Normal size and normal respiratory collapse consistent with normal right atrial pressure. Bubble study was performed with and with out valsalva indicating no evidence of intra atrial shunt. Electronically Signed By: Ok Jacques 2019-05-09 14:33:38 PDT
[2019-05-09] MEDS: LISINOPRIL 20 MG TAB PO SCH (12:25)
[2019-05-09] MEDS ORDERED: ENOXAPARIN 40 MG/0.4 ML SYG SC SCH (15:00)
--- NOTE | 2019-05-09 15:01 | PN ---
Date/Time of Note Date/Time of Note DATE: 05/09/19 TIME: 14:51 Assessment/Plan VTE Prophylaxis Risk score (from Ns)>0 risk: 3 SCD applied (from Ns): Yes Pharmacological prophylaxis: LMWH Lines/Catheters IV Catheter Type (from Nrs): Saline Lock Assessment/Plan Assessment/Plan 1. 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 DM, newly diagnosed, increase lantus 3. HTN, controlled 4. Dyslipidemia, on lipitor 5. Hypokalemia, magnesemia, K and Mg given 6. UTI, on rocephin 7. DVT prophylaxis: Result Diagram: 05/09/19 0554 05/09/19 0554 Results 24hrs Laboratory Tests Test 05/08/19 22:55 05/08/19 22:57 05/09/19 00:25 05/09/19 01:46 White Blood Count 19.2 H Red Blood Count 5.33 Hemoglobin 16.0 Hematocrit 47.3 H Mean Corpuscular Volume 88.7 Mean Corpuscular 30.0 Hemoglobin Mean Corpuscular 33.8 Hemoglobin Concent Red Cell Distribution 12.2 Width Platelet Count 344 Mean Platelet Volume 10.0 Immature Granulocytes % 0.500 H Neutrophils % 69.5 Lymphocytes % 21.5 Monocytes % 6.6 Eosinophils % 1.4 Basophils % 0.5 Nucleated Red Blood 0.0 Cells % Immature Granulocytes # 0.100 H Neutrophils # 13.4 H Lymphocytes # 4.1 H Monocytes # 1.3 H Eosinophils # 0.3 Basophils # 0.1 Nucleated Red Blood 0.0 Cells # Prothrombin Time 13.1 Prothrombin Time Ratio 1.0 INR International 0.98 Normalized Ratio Activated 26.1 Partial Thromboplast Time Sodium Level 139 Potassium Level 3.2 L Chloride Level 101 Carbon Dioxide Level 27 Anion Gap 11 Blood Urea Nitrogen 12 Creatinine 0.52 Est Glomerular Filtrat > 60 Rate mL/min Glucose Level 285 H Hemoglobin A1c 10.7 H Calcium Level 8.9 Total Bilirubin 0.4 Direct Bilirubin 0.00 Indirect Bilirubin 0.4 Aspartate Amino 37 Transf (AST/SGOT) Alanine 29 Aminotransferase (ALT/SG PT) Alkaline Phosphatase 172 H Troponin I < 0.012 Total Protein 8.4 H Albumin 3.9 Globulin 4.50 H Albumin/Globulin Ratio 0.86 Triglycerides Level 175 H Cholesterol Level 225 H LDL Cholesterol, 151 Calculated HDL Cholesterol 39 Cholesterol/HDL Ratio 5.7 Bedside Glucose 278 H Urine Color YELLOW Urine Clarity CLEAR Urine pH 6.0 Urine Specific [place] 1.005 Urine Ketones NEGATIVE Urine Nitrite NEGATIVE Urine Bilirubin NEGATIVE Urine Urobilinogen NEGATIVE Urine Leukocyte Esterase 2+ H Urine Microscopic RBC 2 Urine Microscopic WBC 5 Urine Squamous FEW Epithelial Cells Urine Bacteria FEW A Urine Hemoglobin 1+ H Urine Glucose 3+ H Urine Total Protein NEGATIVE Urine Opiates Screen NEGATIVE Urine Barbiturates NEGATIVE Urine Amphetamines NEGATIVE Screen Urine Benzodiazepines NEGATIVE Screen Urine Cocaine Screen NEGATIVE Urine Cannabinoids NEGATIVE POC Venous Lactate 1.5 Test 05/09/19 05:52 05/09/19 05:54 05/09/19 08:39 05/09/19 12:24 Erythrocyte 50 H Sedimentation Rate White Blood Count 15.4 H Red Blood Count 4.73 Hemoglobin 14.1 Hematocrit 42.5 Mean Corpuscular Volume 89.9 Mean Corpuscular 29.8 Hemoglobin Mean Corpuscular 33.2 Hemoglobin Concent Red Cell Distribution 12.3 Width Platelet Count 280 Mean Platelet Volume 10.2 Immature Granulocytes % 0.500 H Neutrophils % 66.8 Lymphocytes % 23.5 Monocytes % 6.9 Eosinophils % 1.9 Basophils % 0.4 Nucleated Red Blood 0.0 Cells % Immature Granulocytes # 0.080 H Neutrophils # 10.3 H Lymphocytes # 3.6 H Monocytes # 1.1 H Eosinophils # 0.3 Basophils # 0.1 Nucleated Red Blood 0.0 Cells # Sodium Level 142 Potassium Level 3.2 L Chloride Level 107 Carbon Dioxide Level 29 Anion Gap 6 Blood Urea Nitrogen 7 Creatinine 0.47 Est Glomerular Filtrat > 60 Rate mL/min Glucose Level 180 # Calcium Level 8.0 L Magnesium Level 1.6 L Total Bilirubin 0.6 Direct Bilirubin 0.00 Indirect Bilirubin 0.6 Aspartate Amino 28 Transf (AST/SGOT) Alanine 28 Aminotransferase (ALT/SG PT) Alkaline Phosphatase 129 H Total Protein 6.9 # Albumin 3.0 L Globulin 3.90 H Albumin/Globulin Ratio 0.76 Thyroid Stimulating 1.750 Hormone (TSH) Bedside Glucose 192 216 Subjective 24 Hr Interval Summary Free Text/Dictation no distress, left hip pain Exam/Review of Systems Exam Vitals Vital Signs Date Temp Pulse Resp B/P (MAP) Pulse Ox O2 O2 Flow FiO2 Time Delivery Rate 05/09/19 Nasal 2.0 12:00 Cannula 8/7/19 99.0 74 18 122/57 95 11:06 (78) Constitutional: alert, well developed Head: normocephalic, atraumatic Eyes: nl conjunctiva, EOMI, nl lids ENMT: nl external ears & nose, nl lips & teeth, nl nasal mucosa & septum Neck: supple, non-tender Respiratory: clear to auscultation, normal air movement; No congested cough, No crackles/rales, No diminished breath sounds, No intercostal retraction, No labored breathing, No respirations, No tactile fremitus, No wheezing, No other Cardiovascular: regular rate and rhythm, nl pulses; No bruits, No diastolic murmur, No edema, No gallop, No irregular rhythm, No jugular venous distention (JVD), No murmurs/extra sounds, No rub, No systolic murmur, No S3, No S4, No other Gastrointestinal: soft, nl liver, spleen, non-tender Musculoskeletal: nl extremities to inspection Extremities: normal pulses; No calf tenderness, No cyanosis, No clubbing, No edema, No pitting pedal edema, No palpable cord, No tenderness, No other Neurological: WEED CUTTER II-XII intact, nl strength, other (aphasia, right facial droop) Results Results 24hrs Laboratory Tests Test 05/08/19 22:55 05/08/19 22:57 05/09/19 00:25 05/09/19 01:46 White Blood Count 19.2 H Red Blood Count 5.33 Hemoglobin 16.0 Hematocrit 47.3 H Mean Corpuscular Volume 88.7 Mean Corpuscular 30.0 Hemoglobin Mean Corpuscular 33.8 Hemoglobin Concent Red Cell Distribution 12.2 Width Platelet Count 344 Mean Platelet Volume 10.0 Immature Granulocytes % 0.500 H Neutrophils % 69.5 Lymphocytes % 21.5 Monocytes % 6.6 Eosinophils % 1.4 Basophils % 0.5 Nucleated Red Blood 0.0 Cells % Immature Granulocytes # 0.100 H Neutrophils # 13.4 H Lymphocytes # 4.1 H Monocytes # 1.3 H Eosinophils # 0.3 Basophils # 0.1 Nucleated Red Blood 0.0 Cells # Prothrombin Time 13.1 Prothrombin Time Ratio 1.0 INR International 0.98 Normalized Ratio Activated 26.1 Partial Thromboplast Time Sodium Level 139 Potassium Level 3.2 L Chloride Level 101 Carbon Dioxide Level 27 Anion Gap 11 Blood Urea Nitrogen 12 Creatinine 0.52 Est Glomerular Filtrat > 60 Rate mL/min Glucose Level 285 H Hemoglobin A1c 10.7 H Calcium Level 8.9 Total Bilirubin 0.4 Direct Bilirubin 0.00 Indirect Bilirubin 0.4 Aspartate Amino 37 Transf (AST/SGOT) Alanine 29 Aminotransferase (ALT/SG PT) Alkaline Phosphatase 172 H Troponin I < 0.012 Total Protein 8.4 H Albumin 3.9 Globulin 4.50 H Albumin/Globulin Ratio 0.86 Triglycerides Level 175 H Cholesterol Level 225 H LDL Cholesterol, 151 Calculated HDL Cholesterol 39 Cholesterol/HDL Ratio 5.7 Bedside Glucose 278 H Urine Color YELLOW Urine Clarity CLEAR Urine pH 6.0 Urine Specific [place] 1.005 Urine Ketones NEGATIVE Urine Nitrite NEGATIVE Urine Bilirubin NEGATIVE Urine Urobilinogen NEGATIVE Urine Leukocyte Esterase 2+ H Urine Microscopic RBC 2 Urine Microscopic WBC 5 Urine Squamous FEW Epithelial Cells Urine Bacteria FEW A Urine Hemoglobin 1+ H Urine Glucose 3+ H Urine Total Protein NEGATIVE Urine Opiates Screen NEGATIVE Urine Barbiturates NEGATIVE Urine Amphetamines NEGATIVE Screen Urine Benzodiazepines NEGATIVE Screen Urine Cocaine Screen NEGATIVE Urine Cannabinoids NEGATIVE POC Venous Lactate 1.5 Test 05/09/19 05:52 05/09/19 05:54 05/09/19 08:39 05/09/19 12:24 Erythrocyte 50 H Sedimentation Rate White Blood Count 15.4 H Red Blood Count 4.73 Hemoglobin 14.1 Hematocrit 42.5 Mean Corpuscular Volume 89.9 Mean Corpuscular 29.8 Hemoglobin Mean Corpuscular 33.2 Hemoglobin Concent Red Cell Distribution 12.3 Width Platelet Count 280 Mean Platelet Volume 10.2 Immature Granulocytes % 0.500 H Neutrophils % 66.8 Lymphocytes % 23.5 Monocytes % 6.9 Eosinophils % 1.9 Basophils % 0.4 Nucleated Red Blood 0.0 Cells % Immature Granulocytes # 0.080 H Neutrophils # 10.3 H Lymphocytes # 3.6 H Monocytes # 1.1 H Eosinophils # 0.3 Basophils # 0.1 Nucleated Red Blood 0.0 Cells # Sodium Level 142 Potassium Level 3.2 L Chloride Level 107 Carbon Dioxide Level 29 Anion Gap 6 Blood Urea Nitrogen 7 Creatinine 0.47 Est Glomerular Filtrat > 60 Rate mL/min Glucose Level 180 # Calcium Level 8.0 L Magnesium Level 1.6 L Total Bilirubin 0.6 Direct Bilirubin 0.00 Indirect Bilirubin 0.6 Aspartate Amino 28 Transf (AST/SGOT) Alanine 28 Aminotransferase (ALT/SG PT) Alkaline Phosphatase 129 H Total Protein 6.9 # Albumin 3.0 L Globulin 3.90 H Albumin/Globulin Ratio 0.76 Thyroid Stimulating 1.750 Hormone (TSH) Bedside Glucose 192 216 Medications Medication Current Medications Ondansetron HCl (Zofran Inj) 4 mg ER BRIDGE PRN IV NAUSEA/VOMITING; Start 05/09/19 at 02:30; Stop 05/10/19 at 02:29 IV Flush (NS 3 ml) 3 ml PER PROTOCOL IV ; Start 05/09/19 at 02:30 Ondansetron HCl (Zofran Inj) 4 mg Q6H PRN IV NAUSEA/VOMITING; Start 05/09/19 at 02:30 Aspirin (Aspirin) 81 mg DAILY PO Last administered on 05/09/19at 09:14; Admin Dose 81 MG; Start 05/09/19 at 09:00 Acetaminophen (Tylenol Tab) 650 mg Q6H PRN PO .PAIN 1-3 OR TEMP; Start 05/09/19 at 02:30 Docusate Sodium (Colace) 100 mg Q12H PRN PO .CONSTIPATION; Start 05/09/19 at 02:30 Bisacodyl (Dulcolax) 5 mg DAILY PRN PO .CONSTIPATION; Start 05/09/19 at 02:30 Diagnostic Test (Pha) (Accu-Chek) 1 ea 02 XX ; Start 05/10/19 at 02:00 Ceftriaxone Sodium 50 ml @ 100 mls/hr Q24H IVPB Last administered on 05/09/19at 06:43; Admin Dose 100 MLS/HR; Start 05/09/19 at 02:30 Insulin Glargine (Lantus) 10 units DAILY@2000 SC ; Start 05/09/19 at 20:00 Insulin Aspart (Novolog Insulin Pen) NOVOLOG *MILD* ALGORITHM WITH MEALS BEDTIME SC Last administered on 05/09/19at 12:32; Admin Dose 2 UNIT; Start at 07:55 Atorvastatin Calcium (Lipitor) 80 mg HS PO ; Start 05/10/19 at 21:00 Miscellaneous Information 1 ea NOTE XX ; Start 05/09/19 at 02:30 Glucose (Glutose) 15 gm Q15M PRN PO DECREASED GLUCOSE; Start 05/09/19 at 02:30 Glucose (Glutose) 22.5 gm Q15M PRN PO DECREASED GLUCOSE; Start 05/09/19 at 02:30 Dextrose (D50w Syringe) 25 ml Q15M PRN IV DECREASED GLUCOSE; Start 05/09/19 at 02:30 Dextrose (D50w Syringe) 50 ml Q15M PRN IV DECREASED GLUCOSE; Start 05/09/19 at 02:30 Glucagon (Glucagen) 1 mg Q15M PRN IM DECREASED GLUCOSE; Start 05/09/19 at 02:30 Glucose (Glutose) 15 gm Q15M PRN BUCCAL DECREASED GLUCOSE; Start 05/09/19 at 02:30 Enalaprilat (Vasotec Iv) 1.25 mg Q4H PRN IV ELEVATED BLOOD PRESSURE; Start 05/09/19 at 02:30 Lisinopril (Zestril) 20 mg DAILY PO Last administered on 05/09/19at 12:25; Admin Dose 20 MG; Start 05/09/19 at 12:00 FELA CARVER MD May 09, 2019 15:01
[2019-05-09 16:37] VITALS: BP 110/60; PULSE 64; RESP 18
[2019-05-09 20:00] VITALS: BP 123/67; PULSE 78; RESP 18
[2019-05-09] MEDS ORDERED: INSULIN GLARGINE [LANTus] (100 UNITS/ML) SYG SC SCH (20:00)
[2019-05-09] MEDS: INSULIN GLARGINE [LANTus] (100 UNITS/ML) SYG SC SCH (23:10)
[2019-05-10] VITALS (7 sets, daily range): BP systolic 89–142; BP diastolic 56–81; PULSE 65–86; RESP 18
[2019-05-10] MEDS: ACCU-CHEK XX SCH (01:24)
[2019-05-10] MEDS ORDERED: ACCU-CHEK XX SCH (02:00)
[2019-05-10] MEDS: CEFTRIAXONE 1 GM/50 ML (PMX) 50 ML IVPB SCH (03:44)
[2019-05-10] MEDS: INSULIN ASPART [NOVOLOG] 3 ML PEN SC SCH ×4 (08:27→20:34)
[2019-05-10] MEDS: ASPIRIN 81 MG TAB PO SCH (10:15)
[2019-05-10] MEDS: LISINOPRIL 20 MG TAB PO SCH (10:16)
--- NOTE | 2019-05-10 10:33 | CONS ---
Assessment/Plan Assessment/Plan Assessment/Plan (Recall) 53 F s/ reported PMHx, who presents for evaluation of sudden aphasia c/f stroke. MRI brain confirms a recent L frontal infarct CTA h/n is notable for mild athero.. TTE is unremarkable A1C > 10 LDL > 150 UDS neg ESR 50 RPR neg P: Agree w/ asa/lipitor for secondary stroke prevention for now ST/OT/PT as necessary Other risk factor modification per primary Consultation Date/Type/Reason Admit Date/Time May 09, 2019 at 02:04 Type of Consult Neurology Reason for Consultation aphasia Requesting Provider: VISH POLLOCK Date/Time of Note DATE: 05/10/19 TIME: 10:30 24 HR Interval Summary Free Text/Dictation s/p MRI brain Exam/Review of Systems Exam Vitals Vital Signs Date Temp Pulse Resp B/P (MAP) Pulse Ox O2 O2 Flow FiO2 Time Delivery Rate 05/10/19 98.2 76 18 133/71 94 Room Air 07:39 (91) 05/09/19 2.0 15:09 Intake and Output 05/09/19 05/09/19 05/10/19 1515:00 23:00 07:00 IntakeIntake Total 50 ml 400 ml 200 ml OutputOutput Total 1 ml BalanceBalance 50 ml 399 ml 200 ml Results Result Diagram: 05/10/19 0552 05/10/19 0552 Results 24hrs Laboratory Tests Test 05/09/19 12:24 05/09/19 17:45 05/09/19 22:01 05/10/19 05:52 Bedside Glucose 216 139 184 White Blood Count 14.5 H Red Blood Count 4.68 Hemoglobin 14.0 Hematocrit 42.6 Mean Corpuscular Volume 91.0 Mean Corpuscular 29.9 Hemoglobin Mean Corpuscular 32.9 Hemoglobin Concent Red Cell Distribution 12.6 Width Platelet Count 276 Mean Platelet Volume 10.5 H Immature Granulocytes % 0.600 H Neutrophils % 67.8 Lymphocytes % 22.1 Monocytes % 6.6 Eosinophils % 2.4 Basophils % 0.5 Nucleated Red Blood 0.0 Cells % Immature Granulocytes # 0.090 H Neutrophils # 9.8 H Lymphocytes # 3.2 H Monocytes # 1.0 H Eosinophils # 0.3 Basophils # 0.1 Nucleated Red Blood 0.0 Cells # Sodium Level 138 Potassium Level 3.5 Chloride Level 101 Carbon Dioxide Level 33 H Anion Gap 4 L Blood Urea Nitrogen 11 Creatinine 0.55 Est Glomerular Filtrat > 60 Rate mL/min Glucose Level 185 Calcium Level 8.5 Magnesium Level 1.9 Total Bilirubin 0.5 Direct Bilirubin 0.00 Indirect Bilirubin 0.5 Aspartate Amino 30 Transf (AST/SGOT) Alanine 22 Aminotransferase (ALT/SG PT) Alkaline Phosphatase 130 H Total Protein 7.1 Albumin 3.1 L Globulin 4.00 H Albumin/Globulin Ratio 0.77 Test 05/10/19 06:02 05/10/19 08:20 Bedside Glucose 170 159 Medications Medication Current Medications IV Flush (NS 3 ml) 3 ml PER PROTOCOL IV ; Start 05/09/19 at 02:30 Ondansetron HCl (Zofran Inj) 4 mg Q6H PRN IV NAUSEA/VOMITING; Start 05/09/19 at 02:30 Aspirin (Aspirin) 81 mg DAILY PO Last administered on 05/10/19at 10:15; Admin Dose 81 MG; Start 05/09/19 at 09:00 Acetaminophen (Tylenol Tab) 650 mg Q6H PRN PO .PAIN 1-3 OR TEMP; Start 05/09/19 at 02:30 Docusate Sodium (Colace) 100 mg Q12H PRN PO .CONSTIPATION; Start 05/09/19 at 02:30 Bisacodyl (Dulcolax) 5 mg DAILY PRN PO .CONSTIPATION; Start 05/09/19 at 02:30 Diagnostic Test (Pha) (Accu-Chek) 1 ea 02 XX ; Start 05/10/19 at 02:00 Ceftriaxone Sodium 50 ml @ 100 mls/hr Q24H IVPB Last administered on 05/10/19at 03:44; Admin Dose 100 MLS/HR; Start 05/09/19 at 02:30 Insulin Aspart (Novolog Insulin Pen) NOVOLOG *MILD* ALGORITHM WITH MEALS BEDTIME SC Last administered on 05/10/19at 08:27; Admin Dose 1 UNIT; Start 05/09/19 at 07:55 Atorvastatin Calcium (Lipitor) 80 mg HS PO ; Start 05/10/19 at 21:00 Miscellaneous Information 1 ea NOTE XX ; Start 05/09/19 at 02:30 Glucose (Glutose) 15 gm Q15M PRN PO DECREASED GLUCOSE; Start 05/09/19 at 02:30 Glucose (Glutose) 22.5 gm Q15M PRN PO DECREASED GLUCOSE; Start 05/09/19 at 02:30 Dextrose (D50w Syringe) 25 ml Q15M PRN IV DECREASED GLUCOSE; Start 05/09/19 at 02:30 Dextrose (D50w Syringe) 50 ml Q15M PRN IV DECREASED GLUCOSE; Start 05/09/19 at 02:30 Glucagon (Glucagen) 1 mg Q15M PRN IM DECREASED GLUCOSE; Start 05/09/19 at 02:30 Glucose (Glutose) 15 gm Q15M PRN BUCCAL DECREASED GLUCOSE; Start 05/09/19 at 02:30 Enalaprilat (Vasotec Iv) 1.25 mg Q4H PRN IV ELEVATED BLOOD PRESSURE; Start 05/09/19 at 02:30 Lisinopril (Zestril) 20 mg DAILY PO Last administered on 05/10/19at 10:16; Admin Dose 20 MG; Start 05/09/19 at 12:00 Insulin Glargine (Lantus) 14 units DAILY@2000 SC Last administered on 05/09/19at 23:10; Admin Dose 14 UNITS; Start 05/09/19 at 20:00 COREY ANDRES May 10, 2019 10:33
--- NOTE | 2019-05-10 14:55 | PN ---
Date/Time of Note Date/Time of Note DATE: 05/10/19 TIME: 14:42 Assessment/Plan VTE Prophylaxis Risk score (from Ns)>0 risk: 3 SCD applied (from Ns): Yes Pharmacological prophylaxis: LMWH Lines/Catheters IV Catheter Type (from Nrsg): Saline Lock Assessment/Plan Assessment/Plan 1. Acute left frontal lobe infarct with expressive aphasia, on aspirin, lipitor, PT/OT/speech 2. DM, newly diagnosed, on lantus, add metformin 3. HTN, increase lisinopril 4. Dyslipidemia, on lipitor 5. Hypokalemia, magnesemia, corrected 6. UTI, on rocephin 7. DVT prophylaxis: lovenox 8. Case management for discharge planning: home PT/OT and speech Result Diagram: 05/10/19 0552 05/10/19 0552 Results 24hrs Laboratory Tests Test 05/09/19 17:45 05/09/19 22:01 05/10/19 05:52 05/10/19 06:02 Bedside Glucose 139 184 170 White Blood Count 14.5 H Red Blood Count 4.68 Hemoglobin 14.0 Hematocrit 42.6 Mean Corpuscular Volume 91.0 Mean Corpuscular 29.9 Hemoglobin Mean Corpuscular 32.9 Hemoglobin Concent Red Cell Distribution 12.6 Width Platelet Count 276 Mean Platelet Volume 10.5 H Immature Granulocytes % 0.600 H Neutrophils % 67.8 Lymphocytes % 22.1 Monocytes % 6.6 Eosinophils % 2.4 Basophils % 0.5 Nucleated Red Blood 0.0 Cells % Immature Granulocytes # 0.090 H Neutrophils # 9.8 H Lymphocytes # 3.2 H Monocytes # 1.0 H Eosinophils # 0.3 Basophils # 0.1 Nucleated Red Blood 0.0 Cells # Sodium Level 138 Potassium Level 3.5 Chloride Level 101 Carbon Dioxide Level 33 H Anion Gap 4 L Blood Urea Nitrogen 11 Creatinine 0.55 Est Glomerular Filtrat > 60 Rate mL/min Glucose Level 185 Calcium Level 8.5 Magnesium Level 1.9 Total Bilirubin 0.5 Direct Bilirubin 0.00 Indirect Bilirubin 0.5 Aspartate Amino 30 Transf (AST/SGOT) Alanine 22 Aminotransferase (ALT/SG PT) Alkaline Phosphatase 130 H Total Protein 7.1 Albumin 3.1 L Globulin 4.00 H Albumin/Globulin Ratio 0.77 Test 05/10/19 08:20 05/10/19 13:04 Bedside Glucose 159 176 Subjective 24 Hr Interval Summary Free Text/Dictation may answer simple questions Exam/Review of Systems Exam Vitals Vital Signs Date Temp Pulse Resp B/P (MAP) Pulse Ox O2 O2 Flow FiO2 Time Delivery Rate 05/10/19 97.8 86 18 142/81 96 Room Air 11:23 (101) 05/09/19 2.0 15:09 Intake and Output 05/09/19 05/09/19 05/10/19 1515:00 23:00 07:00 IntakeIntake Total 50 ml 400 ml 200 ml OutputOutput Total 1 ml BalanceBalance 50 ml 399 ml 200 ml Constitutional: alert, oriented, well developed, obese Psych: no complaints, nl mood/affect Head: normocephalic, atraumatic Eyes: nl conjunctiva, EOMI, nl lids, PERRL ENMT: nl external ears & nose, nl lips & teeth, nl nasal mucosa & septum Neck: supple, non-tender Respiratory: clear to auscultation, normal air movement; No congested cough, No crackles/rales, No diminished breath sounds, No intercostal retraction, No labored breathing, No respirations, No tactile fremitus, No wheezing, No other Cardiovascular: regular rate and rhythm, nl pulses; No bruits, No diastolic murmur, No edema, No gallop, No irregular rhythm, No jugular venous distention (JVD), No murmurs/extra sounds, No rub, No systolic murmur, No S3, No S4, No other Gastrointestinal: soft, nl liver, spleen, non-tender Musculoskeletal: nl extremities to inspection Extremities: normal pulses; No calf tenderness, No cyanosis, No clubbing, No edema, No pitting pedal edema, No palpable cord, No tenderness, No other 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, nl mental status, other (expressive aphasia) Skin: nl turgor Results Results 24hrs Laboratory Tests Test 05/09/19 17:45 05/09/19 22:01 05/10/19 05:52 05/10/19 06:02 Bedside Glucose 139 184 170 White Blood Count 14.5 H Red Blood Count 4.68 Hemoglobin 14.0 Hematocrit 42.6 Mean Corpuscular Volume 91.0 Mean Corpuscular 29.9 Hemoglobin Mean Corpuscular 32.9 Hemoglobin Concent Red Cell Distribution 12.6 Width Platelet Count 276 Mean Platelet Volume 10.5 H Immature Granulocytes % 0.600 H Neutrophils % 67.8 Lymphocytes % 22.1 Monocytes % 6.6 Eosinophils % 2.4 Basophils % 0.5 Nucleated Red Blood 0.0 Cells % Immature Granulocytes # 0.090 H Neutrophils # 9.8 H Lymphocytes # 3.2 H Monocytes # 1.0 H Eosinophils # 0.3 Basophils # 0.1 Nucleated Red Blood 0.0 Cells # Sodium Level 138 Potassium Level 3.5 Chloride Level 101 Carbon Dioxide Level 33 H Anion Gap 4 L Blood Urea Nitrogen 11 Creatinine 0.55 Est Glomerular Filtrat > 60 Rate mL/min Glucose Level 185 Calcium Level 8.5 Magnesium Level 1.9 Total Bilirubin 0.5 Direct Bilirubin 0.00 Indirect Bilirubin 0.5 Aspartate Amino 30 Transf (AST/SGOT) Alanine 22 Aminotransferase (ALT/SG PT) Alkaline Phosphatase 130 H Total Protein 7.1 Albumin 3.1 L Globulin 4.00 H Albumin/Globulin Ratio 0.77 Test 05/10/19 08:20 05/10/19 13:04 Bedside Glucose 159 176 Medications Medication Current Medications IV Flush (NS 3 ml) 3 ml PER PROTOCOL IV ; Start 05/09/19 at 02:30 Ondansetron HCl (Zofran Inj) 4 mg Q6H PRN IV NAUSEA/VOMITING; Start 05/09/19 at 02:30 Aspirin (Aspirin) 81 mg DAILY PO Last administered on 05/10/19at 10:15; Admin Dose 81 MG; Start 05/09/19 at 09:00 Acetaminophen (Tylenol Tab) 650 mg Q6H PRN PO .PAIN 1-3 OR TEMP; Start 05/09/19 at 02:30 Docusate Sodium (Colace) 100 mg Q12H PRN PO .CONSTIPATION; Start 05/09/19 at 02:30 Bisacodyl (Dulcolax) 5 mg DAILY PRN PO .CONSTIPATION; Start 05/09/19 at 02:30 Diagnostic Test (Pha) (Accu-Chek) 1 ea 02 XX ; Start 05/10/19 at 02:00 Ceftriaxone Sodium 50 ml @ 100 mls/hr Q24H IVPB Last administered on 05/10/19at 03:44; Admin Dose 100 MLS/HR; Start 05/09/19 at 02:30 Insulin Aspart (Novolog Insulin Pen) NOVOLOG *MILD* ALGORITHM WITH MEALS BEDTIME SC Last administered on 05/10/19at 13:16; Admin Dose 2 UNIT; Start 05/09/19 at 07:55 Atorvastatin Calcium (Lipitor) 80 mg HS PO ; Start 05/10/19 at 21:00 Miscellaneous Information 1 ea NOTE XX ; Start 05/09/19 at 02:30 Glucose (Glutose) 15 gm Q15M PRN PO DECREASED GLUCOSE; Start 05/09/19 at 02:30 Glucose (Glutose) 22.5 gm Q15M PRN PO DECREASED GLUCOSE; Start 05/09/19 at 02:30 Dextrose (D50w Syringe) 25 ml Q15M PRN IV DECREASED GLUCOSE; Start 05/09/19 at 02:30 Dextrose (D50w Syringe) 50 ml Q15M PRN IV DECREASED GLUCOSE; Start 05/09/19 at 02:30 Glucagon (Glucagen) 1 mg Q15M PRN IM DECREASED GLUCOSE; Start 05/09/19 at 02:30 Glucose (Glutose) 15 gm Q15M PRN BUCCAL DECREASED GLUCOSE; Start 05/09/19 at 02:30 Enalaprilat (Vasotec Iv) 1.25 mg Q4H PRN IV ELEVATED BLOOD PRESSURE; Start 05/09/19 at 02:30 Lisinopril (Zestril) 20 mg DAILY PO Last administered on 05/10/19at 10:16; Admin Dose 20 MG; Start 05/09/19 at 12:00 Insulin Glargine (Lantus) 14 units DAILY@2000 SC Last administered on 05/09/19at 23:10; Admin Dose 14 UNITS; Start 05/09/19 at 20:00 FELA CARVER MD May 10, 2019 14:53
[2019-05-10] MEDS: metFORMIN 500 MG TAB PO SCH (18:41)
[2019-05-10] MEDS: ATORVASTATIN 80 MG TAB PO SCH (20:26)
[2019-05-10] MEDS: INSULIN GLARGINE [LANTus] (100 UNITS/ML) SYG SC SCH (20:35)
[2019-05-11] MEDS: ACCU-CHEK XX SCH (01:54)
[2019-05-11] MEDS: CEFTRIAXONE 1 GM/50 ML (PMX) 50 ML IVPB SCH (02:48)
[2019-05-11 03:43] VITALS: BP 112/55; PULSE 62; RESP 18
[2019-05-11 07:19] VITALS: BP 105/65; PULSE 64; RESP 20
[2019-05-11] MEDS: INSULIN ASPART [NOVOLOG] 3 ML PEN SC SCH ×4 (07:52→20:05)
[2019-05-11] MEDS: metFORMIN 500 MG TAB PO SCH ×2 (07:55→18:03)
[2019-05-11] MEDS: ASPIRIN 81 MG TAB PO SCH (09:00)
[2019-05-11] MEDS ORDERED: ENOXAPARIN 30 MG/0.3 ML SYG SC SCH (09:00)
[2019-05-11] MEDS ORDERED: LISINOPRIL 20 MG TAB PO SCH (09:00)
[2019-05-11 10:59] VITALS: BP 95/61; PULSE 73; RESP 20
--- NOTE | 2019-05-11 13:40 | PN ---
Date/Time of Note Date/Time of Note DATE: 05/11/19 TIME: 13:38 Assessment/Plan VTE Prophylaxis Risk score (from Ns)>0 risk: 1 SCD applied (from Nsg): Yes Pharmacological prophylaxis: LMWH Lines/Catheters IV Catheter Type (from Nrsg): Saline Lock Assessment/Plan Assessment/Plan 1. Acute left frontal lobe infarct with expressive aphasia, on aspirin, lipitor, PT/OT/speech 2. DM, newly diagnosed, on lantus and metformin 3. HTN, on lisinopril 4. Dyslipidemia, on lipitor 5. Hypokalemia, magnesemia, corrected 6. UTI, on rocephin 7. DVT prophylaxis: lovenox 8. OT recommends acute rehab, acute rehab eval Result Diagram: 05/11/1961005/11/19 0611 Results 24hrs Laboratory Tests Test 05/10/19 18:01 05/10/19 20:27 05/11/19 01:53 05/11/19 06:11 Bedside Glucose 135 189 136 White Blood Count 15.9 H Red Blood Count 4.84 Hemoglobin 14.7 Hematocrit 44.5 Mean Corpuscular Volume 91.9 Mean Corpuscular 30.4 Hemoglobin Mean Corpuscular 33.0 Hemoglobin Concent Red Cell Distribution 12.5 Width Platelet Count 312 Mean Platelet Volume 10.5 H Immature Granulocytes % 0.800 H Neutrophils % 67.4 Lymphocytes % 21.4 Monocytes % 7.0 Eosinophils % 2.9 Basophils % 0.5 Nucleated Red Blood 0.0 Cells % Immature Granulocytes # 0.120 H Neutrophils # 10.8 H Lymphocytes # 3.4 H Monocytes # 1.1 H Eosinophils # 0.5 Basophils # 0.1 Nucleated Red Blood 0.0 Cells # Sodium Level 138 Potassium Level 3.5 Chloride Level 101 Carbon Dioxide Level 33 H Anion Gap 4 L Blood Urea Nitrogen 15 Creatinine 0.56 Est Glomerular Filtrat > 60 Rate mL/min Glucose Level 142 # Calcium Level 8.6 Total Bilirubin 0.6 Direct Bilirubin 0.00 Indirect Bilirubin 0.6 Aspartate Amino 34 Transf (AST/SGOT) Alanine 31 Aminotransferase (ALT/SG PT) Alkaline Phosphatase 133 H Total Protein 7.4 Albumin 3.2 L Globulin 4.20 H Albumin/Globulin Ratio 0.76 Test 05/11/19 07:52 05/11/19 12:19 Bedside Glucose 131 126 Subjective 24 Hr Interval Summary Free Text/Dictation patient still has expressive aphasia Exam/Review of Systems Exam Vitals Vital Signs Date Temp Pulse Resp B/P (MAP) Pulse Ox O2 O2 Flow FiO2 Time Delivery Rate 05/11/19 98.0 73 20 95/61 (72) 98 Room Air 10:59 05/10/19 2.0 08:06 Intake and Output 05/10/19 05/10/19 05/11/19 1515:00 23:00 07:00 IntakeIntake Total 300 ml 200 ml BalanceBalance 300 ml 200 ml Constitutional: alert, oriented, well developed Psych: no complaints, nl mood/affect Head: normocephalic, atraumatic Eyes: nl conjunctiva, EOMI, nl lids ENMT: nl external ears & nose, nl lips & teeth, nl nasal mucosa & septum Neck: supple, non-tender Respiratory: clear to auscultation, normal air movement; No congested cough, No crackles/rales, No diminished breath sounds, No intercostal retraction, No labored breathing, No respirations, No tactile fremitus, No wheezing, No other Cardiovascular: regular rate and rhythm, nl pulses; No bruits, No diastolic murmur, No edema, No gallop, No irregular rhythm, No jugular venous distention (JVD), No murmurs/extra sounds, No rub, No systolic murmur, No S3, No S4, No other Gastrointestinal: soft, nl liver, spleen, non-tender Musculoskeletal: nl extremities to inspection Extremities: normal pulses; No calf tenderness, No cyanosis, No clubbing, No edema, No pitting pedal edema, No palpable cord, No tenderness, No other 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, nl mental status, other (expressive aphasia) Results Results 24hrs Laboratory Tests Test 05/10/19 18:01 05/10/19 20:27 05/11/19 01:53 05/11/19 06:11 Bedside Glucose 135 189 136 White Blood Count 15.9 H Red Blood Count 4.84 Hemoglobin 14.7 Hematocrit 44.5 Mean Corpuscular Volume 91.9 Mean Corpuscular 30.4 Hemoglobin Mean Corpuscular 33.0 Hemoglobin Concent Red Cell Distribution 12.5 Width Platelet Count 312 Mean Platelet Volume 10.5 H Immature Granulocytes % 0.800 H Neutrophils % 67.4 Lymphocytes % 21.4 Monocytes % 7.0 Eosinophils % 2.9 Basophils % 0.5 Nucleated Red Blood 0.0 Cells % Immature Granulocytes # 0.120 H Neutrophils # 10.8 H Lymphocytes # 3.4 H Monocytes # 1.1 H Eosinophils # 0.5 Basophils # 0.1 Nucleated Red Blood 0.0 Cells # Sodium Level 138 Potassium Level 3.5 Chloride Level 101 Carbon Dioxide Level 33 H Anion Gap 4 L Blood Urea Nitrogen 15 Creatinine 0.56 Est Glomerular Filtrat > 60 Rate mL/min Glucose Level 142 # Calcium Level 8.6 Total Bilirubin 0.6 Direct Bilirubin 0.00 Indirect Bilirubin 0.6 Aspartate Amino 34 Transf (AST/SGOT) Alanine 31 Aminotransferase (ALT/SG PT) Alkaline Phosphatase 133 H Total Protein 7.4 Albumin 3.2 L Globulin 4.20 H Albumin/Globulin Ratio 0.76 Test 05/11/19 07:52 05/11/19 12:19 Bedside Glucose 131 126 Medications Medication Current Medications IV Flush (NS 3 ml) 3 ml PER PROTOCOL IV ; Start 05/09/19 at 02:30 Ondansetron HCl (Zofran Inj) 4 mg Q6H PRN IV NAUSEA/VOMITING; Start 05/09/19 at 02:30 Aspirin (Aspirin) 81 mg DAILY PO Last administered on 05/11/19at 09:00; Admin Dose 81 MG; Start 05/09/19 at 09:00 Acetaminophen (Tylenol Tab) 650 mg Q6H PRN PO .PAIN 1-3 OR TEMP; Start 05/09/19 at 02:30 Docusate Sodium (Colace) 100 mg Q12H PRN PO .CONSTIPATION; Start 05/09/19 at 02:30 Bisacodyl (Dulcolax) 5 mg DAILY PRN PO .CONSTIPATION; Start 05/09/19 at 02:30 Diagnostic Test (Pha) (Accu-Chek) 1 ea 02 XX Last administered on 05/11/19at 01:54; Admin Dose 1 EA; Start 05/10/19 at 02:00 Ceftriaxone Sodium 50 ml @ 100 mls/hr Q24H IVPB Last administered on 05/11/19at 02:48; Admin Dose 100 MLS/HR; Start 05/09/19 at 02:30 Insulin Aspart (Novolog Insulin Pen) NOVOLOG *MILD* ALGORITHM WITH MEALS BEDTIME SC Last administered on 05/10/19 20:34; Admin Dose 1 UNIT; Start 05/09/19 at 07:55 Atorvastatin Calcium (Lipitor) 80 mg HS PO Last administered on 05/10/19 20:26; Admin Dose 80 MG; Start 05/10/19 at 21:00 Miscellaneous Information 1 ea NOTE XX ; Start 05/09/19 at 02:30 Glucose (Glutose) 15 gm Q15M PRN PO DECREASED GLUCOSE; Start 05/09/19 at 02:30 Glucose (Glutose) 22.5 gm Q15M PRN PO DECREASED GLUCOSE; Start 05/09/19 at 02:30 Dextrose (D50w Syringe) 25 ml Q15M PRN IV DECREASED GLUCOSE; Start 05/09/19 at 02:30 Dextrose (D50w Syringe) 50 ml Q15M PRN IV DECREASED GLUCOSE; Start 05/09/19 at 02:30 Glucagon (Glucagen) 1 mg Q15M PRN IM DECREASED GLUCOSE; Start 05/09/19 at 02:30 Glucose (Glutose) 15 gm Q15M PRN BUCCAL DECREASED GLUCOSE; Start 05/09/19 at 02:30 Enalaprilat (Vasotec Iv) 1.25 mg Q4H PRN IV ELEVATED BLOOD PRESSURE; Start 05/09/19 at 02:30 Insulin Glargine (Lantus) 14 units DAILY@2000 SC Last administered on 05/10/19at 20:35; Admin Dose 14 UNITS; Start 05/09/19 at 20:00 Metformin HCl (Glucophage) 500 mg BID WITH MEALS PO Last administered on 05/11/19at 07:55; Admin Dose 500 MG; Start 05/10/19 at 17:55 Enoxaparin Sodium (Lovenox) 30 mg DAILY SC Last administered on 05/11/19 09:00; Admin Dose 30 MG; Start 05/11/19 at 09:00 Lisinopril (Zestril) 20 mg DAILY PO ; Start 05/12/19 at 09:00 FELA CARVER MD May 11, 2019 13:40
[2019-05-11 15:13] VITALS: BP 81/45; PULSE 75; RESP 18
--- NOTE | 2019-05-11 15:38 | DS ---
Date/Time of Note Date/Time of Note DATE: 05/11/19 TIME: 15:33 Discharge Summary Admission/Discharge Info Admit Date/Time May 09, 2019 at 02:04 Discharge Date/Time Discharge Diagnosis 1. Acute left frontal lobe infarct with expressive aphasia, on aspirin, lipitor, PT/OT/speech 2. DM, newly diagnosed, stable on lantus and metformin 3. HTN, on lisinopril 4. Dyslipidemia, on lipitor 5. Hypokalemia, magnesemia, corrected 6. UTI, on levaquin for 5 days Patient Condition: Stable Hospital Course This is a 53-year-old female with apparently no significant past medical history who presented to the emergency department with an inability to speak. Patient presented with her daughter. Patient's daughter reported that approximately yesterday on 05 08 at 10 AM how the last time patient was known known to be at her baseline. She stated that her mom was unable to speak. She was then later on had difficulty writing. Patient at the current time does respond to questions but only with yes and no. He denies any pain. Denies any head trauma. Physical exam patient has expressive aphasia but no focal deficit. CT and MRI head revealed 5 cm recent infarct involving the dorsal portion of the left frontal lobe and left inferior frontal gyrus, blood degradation products are present within the infarcted territory.Patient is getting aspirain and lipitor, along with PT/OT and speech therapy. Symptom is slowing improving. She will be transferred to acute rehab today. Patient has DM, HTN and dyslipidemia that she has never been treated. Blood pressure is controlled with lisinopril. Patient is on metformin and lantus for DM, and lipitor for dyslipidemia. Patient will follow up with PCP to adjust treatment. Home Meds Active Scripts Levofloxacin* (Levofloxacin*) 250 Mg Tablet, 250 MG PO DAILY for 5 Days, TAB Prov:FELA CARVER MD 05/11/19 Aspirin (Aspirin) 81 Mg Chew, 81 MG PO DAILY for 30 Days, TAB Prov:FELA CARVER MD 05/11/19 Metformin* (Glucophage*) 500 Mg Tab, 500 MG PO BID WITH MEALS for 30 Days, TAB Prov:FELA CARVER MD 05/11/19 [Insulin Glargine] 100 UNITS/ML SOLN No Conflict Check, 14 UNITS SC DAILY@1999 Prov:FELA CARVER MD 05/11/19 Insulin Aspart* (Novolog Insulin Pen*) 100 Unit/Ml Soln, 0 UNIT SC WITH MEALS BEDTIME for 30 Days Prov:FELA CARVER MD 05/11/19 Lisinopril* (Lisinopril*) 20 Mg Tablet, 20 MG PO DAILY for 30 Days, TAB Prov:FELA CARVER MD 05/11/19 Atorvastatin* (Atorvastatin*) 80 Mg Tablet, 80 MG PO HS for 30 Days, TAB Prov:FELA CARVER MD 05/11/19 Discontinued Reported Medications Naproxen* (Aleve*) 220 Mg Capsule, 220 MG PO BID, #60 CAP 05/09/19 Follow-up Plan PCP and neurology in tone week Primary Care Provider Syed Mancia MD Pending Labs Laboratory Tests Test 05/10/19 18:01 05/10/19 20:27 05/11/19 01:53 05/11/19 06:11 Bedside 135 189 136 Glucose mg/dL (70-220) mg/dL (70-220) mg/dL (70-220) White Blood 15.9 Count 10^3/ul (4.8-1 0.8) Red Blood 4.84 Count 10^6/ul (4.20- 5.40) Hemoglobin 14.7 g/dl (12.0-16. 0) Hematocrit 44.5 % (37.0-47.0) Mean 91.9 Corpuscular fl (82.0-101.0 Volume ) Mean 30.4 Corpuscular pg (29.0-33.0) Hemoglobin Mean 33.0 Corpuscular g/dl (32.0-37. Hemoglobin Conc 0) ent Red Cell 12.5 Distribution % (11.5-14.5) Width Platelet Count 312 10^3/UL (140-4 15) Mean Platelet 10.5 Volume fl (7.4-10.4) Immature 0.800 Granulocytes % % (0.001-0.429 ) Neutrophils % 67.4 % (39.0-77.0) Lymphocytes % 21.4 % (15.0-51.0) Monocytes % 7.0 % (0.0-11.0) Eosinophils % 2.9 % (0.0-7.0) Basophils % 0.5 % (0.0-2.0) Nucleated Red 0.0 Blood Cells % /100WBC (0.0-0 .0) Immature 0.120 Granulocytes # 10^3/ul (0.0-0 .031) Neutrophils # 10.8 10^3/ul (1.6-7 .5) Lymphocytes # 3.4 10^3/ul (0.8-2 .9) Monocytes # 1.1 10^3/ul (0.3-0 .9) Eosinophils # 0.5 10^3/ul (0.0-0 .5) Basophils # 0.1 10^3/ul (0.0-0 .1) Nucleated Red 0.0 Blood Cells # 10^3/ul (0.0-0 .0) Sodium Level 138 mmol/L (135-14 4) Potassium 3.5 Level mmol/L (3.5-5. 1) Chloride Level 101 mmol/L (97-110 ) Carbon Dioxide 33 Level mmol/L (21-31) Anion Gap 4 (5-13) Blood Urea 15 Nitrogen mg/dl (7-20) Creatinine 0.56 mg/dl (0.44-1. 00) Est Glomerular > 60 Filtrat mL/min (>60) Rate mL/min Glucose Level 142 mg/dl (70-220) Calcium Level 8.6 mg/dl (8.4-10. 2) Total 0.6 Bilirubin mg/dl (0.2-1.3 ) Direct 0.00 Bilirubin mg/dl (0.00-0. 20) Indirect 0.6 Bilirubin mg/dl (0-1.1) Aspartate Amino 34 Transf (AST/SGO IU/L (15-46) T) Alanine 31 Aminotransferas IU/L (13-69) e (ALT/SGPT) Alkaline 133 Phosphatase IU/L (42-121) Total Protein 7.4 g/dl (6.1-8.1) Albumin 3.2 g/dl (3.3-4.9) Globulin 4.20 g/dl (1.3-3.2) Albumin/Globuli 0.76 n Ratio Test 05/11/19 07:52 05/11/19 12:19 Bedside 131 126 Glucose mg/dL (70-220) mg/dL (70-220) FELA CARVER MD May 11, 2019 15:38
[2019-05-11 19:30] VITALS: BP 91/53; PULSE 73; RESP 18
[2019-05-11] MEDS: ATORVASTATIN 80 MG TAB PO SCH (20:05)
[2019-05-11] MEDS: INSULIN GLARGINE [LANTus] (100 UNITS/ML) SYG SC SCH (20:31)
[2019-05-11 20:53] VITALS: BP 115/61; PULSE 73; RESP 18
[2019-05-12] MEDS ORDERED: LISINOPRIL 20 MG TAB PO SCH (09:00)
== END 2019-05-11 21:30 | DRG 65 ==
LOC: EDBD 22:34 → E/R 22:34 → TEL 05-09 02:04
PROVIDERS: ADMIT Family Medicine; ATTEND Internal Medicine
DX: I63.9 Cerebral infarction, unspecified (principal); Z68.41 Body mass index [BMI] 40.0-44.9, adult; N39.0 Urinary tract infection, site not specified; E11.8 Type 2 diabetes mellitus with unspecified complications; E66.01 Morbid (severe) obesity due to excess calories; R47.01 Aphasia; Z71.3 Dietary counseling and surveillance; B95.1 Streptococcus, group B, as the cause of diseases classified elsewhere; Z79.4 Long term (current) use of insulin; Z79.82 Long term (current) use of aspirin
CPT/HCPCS: 36415; 70450; 70496; 70498; 70551; 71045; 80053; 80061; 80307; 81001; 82306; 82962; 83036; 83605; 83735; 84443; 84484; 85025; 85610; 85651; 85730; 86592; 87086; 92507; 92523; 92610; 93005; 93306; 93880; 97110; 97116; 97163; 97165; 97530; J0696; J1650; J1815; J3475; J7030; Q9967

== ENCOUNTER 2019-05-11 17:35 | Inpatient (IN) | payer BC ==
[~2019-05-11] VITALS: Ht 167.6 cm; Wt 101.6 kg
[2019-05-11 21:50] VITALS: BP 109/63; PULSE 71; RESP 18
[2019-05-11] MEDS ORDERED: MAGNESIUM HYDROXIDE 30ML CUP PO PRN (22:30)
[2019-05-11] MEDS ORDERED: PENDING SANTYL ORDER FOR WOUND CARE XX PRN (22:30)
[2019-05-11] MEDS ORDERED: LACTULOSE 30ML CUP PO PRN (22:30)
[2019-05-11] MEDS ORDERED: ACETAMINOPHEN 325 MG TAB PO PRN (22:30)
[2019-05-11] MEDS ORDERED: ENALAPRILAT 1.25 MG INJ IV PRN (22:30)
[2019-05-11] MEDS ORDERED: BISACODYL 10 MG SUPP PR PRN (22:30)
[2019-05-11] MEDS ORDERED: ONDANSETRON 4 MG INJ IV PRN (22:30)
[2019-05-11 23:00] VITALS: Ht 167.6 cm; Wt 101.6 kg
[2019-05-11] MEDS ORDERED: GLUCOSE GEL 15 GRAM TUBE BUCCAL PRN (23:00)
[2019-05-11] MEDS ORDERED: DEXTROSE 50% 50 ML SYRINGE IV PRN ×2 (23:00)
[2019-05-11] MEDS ORDERED: GLUCOSE GEL 15 GRAM TUBE PO PRN ×2 (23:00)
[2019-05-11] MEDS ORDERED: GLUCAGON 1 MG INJ IM PRN (23:00)
[2019-05-11] MEDS ORDERED: NACL 0.9% 3 ML SYG IV PRN (23:30)
[2019-05-11] MEDS ORDERED: DEXTROSE 5%-0.45% NACL 1,000 ML IV SCH (23:30)
[2019-05-12] MEDS: morphine 2 MG INJ IV PRN ×3 (01:48→20:49)
[2019-05-12 02:00] VITALS: BP 114/64; PULSE 75; RESP 18
[2019-05-12] MEDS: ACCU-CHEK XX SCH (02:00)
[2019-05-12 08:24] VITALS: BP 112/58; PULSE 82; RESP 18
[2019-05-12] MEDS: metFORMIN 500 MG TAB PO SCH ×2 (09:07→17:19)
[2019-05-12] MEDS: ENOXAPARIN 30 MG/0.3 ML SYG SC SCH (09:12)
[2019-05-12] MEDS: INSULIN ASPART [NOVOLOG] 3 ML PEN SC SCH ×4 (09:12→20:41)
[2019-05-12] MEDS: DOCUSATE SODIUM 100 MG CAP PO SCH ×2 (09:13→20:38)
[2019-05-12] MEDS: ASPIRIN 81 MG TAB PO SCH (09:13)
[2019-05-12] MEDS: LISINOPRIL 20 MG TAB PO SCH (09:14)
[2019-05-12] MEDS: CEFTRIAXONE 1 GM/50 ML (PMX) 50 ML IVPB SCH (09:17)
[2019-05-12 13:46] VITALS: BP 91/55; PULSE 79; RESP 17
[2019-05-12 19:16] VITALS: BP 110/65; PULSE 81; RESP 18
[2019-05-12] MEDS: GABAPENTIN 300 MG CAP PO SCH (20:38)
[2019-05-12] MEDS: INSULIN GLARGINE [LANTus] (100 UNITS/ML) SYG SC SCH (20:40)
[2019-05-12] MEDS: BETAMETHASONE/CLOTRIMAZOLE 15 GM CR TOP SCH (20:41)
[2019-05-12] MEDS: ATORVASTATIN 80 MG TAB PO SCH (20:48)
[2019-05-12] MEDS: SENNA TAB PO SCH (20:54)
[2019-05-13 02:00] VITALS: BP 109/63; PULSE 77; RESP 18
[2019-05-13] MEDS: ACCU-CHEK XX SCH (02:19)
[2019-05-13 07:00] VITALS: BP 99/56; PULSE 75; RESP 18
[2019-05-13] MEDS: INSULIN ASPART [NOVOLOG] 3 ML PEN SC SCH ×4 (07:29→21:00)
[2019-05-13] MEDS: metFORMIN 500 MG TAB PO SCH ×2 (07:29→17:23)
[2019-05-13] MEDS: GABAPENTIN 100 MG CAP PO SCH ×2 (07:29→12:00)
[2019-05-13] MEDS: morphine 2 MG INJ IV PRN ×4 (07:30→22:23)
[2019-05-13 08:30] VITALS: BP 108/68; PULSE 79
[2019-05-13] MEDS: DOCUSATE SODIUM 100 MG CAP PO SCH ×3 (08:31→21:00)
[2019-05-13] MEDS: ASPIRIN 81 MG TAB PO SCH (08:31)
[2019-05-13] MEDS: ENOXAPARIN 30 MG/0.3 ML SYG SC SCH (08:32)
[2019-05-13] MEDS: CAPSAICIN 0.025% 60 GM CR TOP SCH ×3 (08:34→21:08)
[2019-05-13] MEDS: CEFTRIAXONE 1 GM/50 ML (PMX) 50 ML IVPB SCH (08:36)
[2019-05-13] MEDS: BETAMETHASONE/CLOTRIMAZOLE 15 GM CR TOP SCH ×2 (08:44→21:07)
[2019-05-13] MEDS: LISINOPRIL 20 MG TAB PO SCH (09:00)
[2019-05-13] MEDS ORDERED: ERGOCALCIFEROL (8000 UNITS/ML PO SYG) PO ONE (12:00)
[2019-05-13 14:00] VITALS: BP 111/69; PULSE 75; RESP 18
[2019-05-13 20:00] VITALS: BP 107/59; PULSE 83; RESP 18
[2019-05-13] MEDS: SENNA TAB PO SCH (21:00)
[2019-05-13] MEDS: ATORVASTATIN 80 MG TAB PO SCH (21:06)
[2019-05-13] MEDS: INSULIN GLARGINE [LANTus] (100 UNITS/ML) SYG SC SCH (21:06)
[2019-05-13] MEDS: GABAPENTIN 300 MG CAP PO SCH (21:06)
[2019-05-14] MEDS: ACCU-CHEK XX SCH (02:00)
[2019-05-14 02:10] VITALS: BP 109/64; PULSE 79; RESP 16
[2019-05-14 07:00] VITALS: BP 115/67; PULSE 77; RESP 18
[2019-05-14] MEDS: INSULIN ASPART [NOVOLOG] 3 ML PEN SC SCH ×4 (07:35→21:00)
[2019-05-14] MEDS: GABAPENTIN 100 MG CAP PO SCH ×2 (07:50→11:57)
[2019-05-14] MEDS: metFORMIN 500 MG TAB PO SCH ×2 (07:50→17:28)
[2019-05-14] MEDS: CEFTRIAXONE 1 GM/50 ML (PMX) 50 ML IVPB SCH (08:32)
[2019-05-14] MEDS: LISINOPRIL 20 MG TAB PO SCH (08:32)
[2019-05-14] MEDS: ASPIRIN 81 MG TAB PO SCH (08:32)
[2019-05-14] MEDS: ENOXAPARIN 30 MG/0.3 ML SYG SC SCH (08:33)
[2019-05-14] MEDS: BETAMETHASONE/CLOTRIMAZOLE 15 GM CR TOP SCH ×2 (08:34→21:21)
[2019-05-14] MEDS: CAPSAICIN 0.025% 60 GM CR TOP SCH ×3 (08:34→21:22)
[2019-05-14] MEDS: DOCUSATE SODIUM 100 MG CAP PO SCH ×2 (08:36→21:00)
[2019-05-14 14:00] VITALS: BP_SYST 125; BP_SYST 135; BP_DIAS 70; BP_DIAS 76; PULSE 74; PULSE 76; RESP 18
[2019-05-14] MEDS ORDERED: VANCOMYCIN IV PER PHARMACY XX SCH (15:00)
[2019-05-14] MEDS ORDERED: HYDROCODONE/APAP (5/325) TAB PO PRN (15:00)
[2019-05-14] MEDS ORDERED: VANCOMYCIN HCL 2 GM in SOD CHLORIDE 0.9% 500 ML IVPB SCH (17:00)
[2019-05-14 20:00] VITALS: BP 116/56; PULSE 85; RESP 18
[2019-05-14] MEDS: SENNA TAB PO SCH (21:00)
[2019-05-14] MEDS: INSULIN GLARGINE [LANTus] (100 UNITS/ML) SYG SC SCH (21:18)
[2019-05-14] MEDS: HYDROCODONE/APAP (5/325) TAB NGT PRN (21:20)
[2019-05-14] MEDS: MUPIROCIN 2% 22 GM OINT TOP SCH (21:22)
[2019-05-14] MEDS: GABAPENTIN 300 MG CAP PO SCH (21:23)
[2019-05-14] MEDS: ATORVASTATIN 80 MG TAB PO SCH (21:23)
[2019-05-14] MEDS ORDERED: HYDROCORTISONE 0.5% 28.35 GM OINT TOP SCH (22:30)
[2019-05-14] MEDS: HYDROCORTISONE 0.5% 28.35 GM CR TOP SCH (23:00)
[2019-05-15 02:00] VITALS: BP 98/54; PULSE 85; RESP 18
[2019-05-15] MEDS: ACCU-CHEK XX SCH (02:00)
[2019-05-15] MEDS ORDERED: VANCOMYCIN 1.25 GM/NS 250 ML 250 ML IVPB SCH (05:00)
[2019-05-15] MEDS: VANCOMYCIN 1.25 GM/NS 250 ML 250 ML IVPB SCH ×2 (05:02→17:25)
[2019-05-15 07:30] VITALS: BP 99/57; PULSE 72; RESP 18
[2019-05-15] MEDS: INSULIN ASPART [NOVOLOG] 3 ML PEN SC SCH ×4 (07:35→21:00)
[2019-05-15] MEDS: metFORMIN 500 MG TAB PO SCH ×2 (07:53→17:33)
[2019-05-15] MEDS: GABAPENTIN 100 MG CAP PO SCH ×2 (07:53→11:51)
[2019-05-15] MEDS: DOCUSATE SODIUM 100 MG CAP PO SCH ×2 (09:00→21:00)
[2019-05-15] MEDS: LISINOPRIL 20 MG TAB PO SCH (09:00)
[2019-05-15 09:16] VITALS: BP 110/63
[2019-05-15] MEDS: MUPIROCIN 2% 22 GM OINT TOP SCH ×2 (10:28→21:23)
[2019-05-15] MEDS: HYDROCORTISONE 0.5% 28.35 GM CR TOP SCH ×2 (10:28→21:23)
[2019-05-15] MEDS: BETAMETHASONE/CLOTRIMAZOLE 15 GM CR TOP SCH ×2 (10:29→21:23)
[2019-05-15] MEDS: CAPSAICIN 0.025% 60 GM CR TOP SCH ×3 (10:29→21:23)
[2019-05-15] MEDS: ASPIRIN 81 MG TAB PO SCH (10:31)
[2019-05-15] MEDS: ENOXAPARIN 30 MG/0.3 ML SYG SC SCH (10:33)
[2019-05-15 14:00] VITALS: BP_SYST 107; BP_SYST 132; BP_DIAS 66; BP_DIAS 78; PULSE 92; RESP 18; RESP 20
[2019-05-15 20:00] VITALS: BP 108/57; PULSE 72; RESP 18
[2019-05-15] MEDS: SENNA TAB PO SCH (21:00)
[2019-05-15] MEDS: ATORVASTATIN 80 MG TAB PO SCH (21:20)
[2019-05-15] MEDS: GABAPENTIN 300 MG CAP PO SCH (21:20)
[2019-05-15] MEDS: INSULIN GLARGINE [LANTus] (100 UNITS/ML) SYG SC SCH (21:31)
[2019-05-16 02:00] VITALS: BP 104/60; PULSE 83; RESP 18
[2019-05-16] MEDS: ACCU-CHEK XX SCH (02:00)
[2019-05-16] MEDS: HYDROCODONE/APAP (5/325) TAB NGT PRN (05:04)
[2019-05-16] MEDS: VANCOMYCIN 1.25 GM/NS 250 ML 250 ML IVPB SCH ×2 (05:07→16:59)
[2019-05-16 07:30] VITALS: BP 104/54; PULSE 72; RESP 20
[2019-05-16] MEDS: INSULIN ASPART [NOVOLOG] 3 ML PEN SC SCH ×4 (07:35→21:00)
[2019-05-16] MEDS: metFORMIN 500 MG TAB PO SCH ×2 (07:46→17:04)
[2019-05-16] MEDS: GABAPENTIN 100 MG CAP PO SCH ×2 (07:47→11:47)
[2019-05-16] MEDS: ASPIRIN 81 MG TAB PO SCH (08:53)
[2019-05-16] MEDS: DOCUSATE SODIUM 100 MG CAP PO SCH ×2 (08:53→21:04)
[2019-05-16] MEDS: ENOXAPARIN 30 MG/0.3 ML SYG SC SCH (08:53)
[2019-05-16] MEDS: CAPSAICIN 0.025% 60 GM CR TOP SCH ×3 (08:54→21:16)
[2019-05-16] MEDS: BETAMETHASONE/CLOTRIMAZOLE 15 GM CR TOP SCH ×2 (08:54→21:16)
[2019-05-16] MEDS: HYDROCORTISONE 0.5% 28.35 GM CR TOP SCH ×2 (08:54→21:16)
[2019-05-16] MEDS: LISINOPRIL 20 MG TAB PO SCH (08:55)
[2019-05-16] MEDS: MUPIROCIN 2% 22 GM OINT TOP SCH ×2 (08:55→21:16)
[2019-05-16 14:00] VITALS: BP 110/63; PULSE 86; RESP 18
[2019-05-16 19:33] VITALS: BP 115/70; PULSE 80; RESP 18
[2019-05-16] MEDS: SENNA TAB PO SCH (21:04)
[2019-05-16] MEDS: ATORVASTATIN 80 MG TAB PO SCH (21:04)
[2019-05-16] MEDS: GABAPENTIN 300 MG CAP PO SCH (21:04)
[2019-05-16] MEDS: INSULIN GLARGINE [LANTus] (100 UNITS/ML) SYG SC SCH (21:11)
[2019-05-17] MEDS: ACCU-CHEK XX SCH (01:35)
[2019-05-17 02:00] VITALS: BP 109/67; PULSE 77; RESP 18
[2019-05-17] MEDS: VANCOMYCIN 1.25 GM/NS 250 ML 250 ML IVPB SCH ×2 (05:32→16:28)
[2019-05-17 07:00] VITALS: BP 117/59; PULSE 73; RESP 18
[2019-05-17] MEDS: INSULIN ASPART [NOVOLOG] 3 ML PEN SC SCH ×4 (07:35→21:00)
[2019-05-17 08:00] VITALS: BP 102/56; PULSE 77; RESP 18
[2019-05-17] MEDS: GABAPENTIN 100 MG CAP PO SCH ×2 (08:38→11:46)
[2019-05-17] MEDS: metFORMIN 500 MG TAB PO SCH ×2 (08:38→17:22)
[2019-05-17] MEDS: MUPIROCIN 2% 22 GM OINT TOP SCH ×2 (08:43→21:37)
[2019-05-17] MEDS: HYDROCORTISONE 0.5% 28.35 GM CR TOP SCH ×2 (08:43→21:37)
[2019-05-17] MEDS: BETAMETHASONE/CLOTRIMAZOLE 15 GM CR TOP SCH ×2 (08:43→21:39)
[2019-05-17] MEDS: DOCUSATE SODIUM 100 MG CAP PO SCH ×2 (09:00→21:00)
[2019-05-17] MEDS: LISINOPRIL 20 MG TAB PO SCH (11:07)
[2019-05-17] MEDS: ASPIRIN 81 MG TAB PO SCH (11:08)
[2019-05-17] MEDS: CAPSAICIN 0.025% 60 GM CR TOP SCH ×3 (11:10→21:39)
[2019-05-17] MEDS: ENOXAPARIN 30 MG/0.3 ML SYG SC SCH (11:11)
[2019-05-17 14:00] VITALS: BP 96/52; PULSE 82; RESP 18
[2019-05-17] MEDS: SENNA TAB PO SCH (21:00)
[2019-05-17] MEDS: ATORVASTATIN 80 MG TAB PO SCH (21:35)
[2019-05-17] MEDS: GABAPENTIN 300 MG CAP PO SCH (21:35)
[2019-05-17] MEDS: INSULIN GLARGINE [LANTus] (100 UNITS/ML) SYG SC SCH (21:41)
[2019-05-18] MEDS: ACCU-CHEK XX SCH (02:00)
[2019-05-18] MEDS: HYDROCODONE/APAP (5/325) TAB NGT PRN ×2 (02:08→22:33)
[2019-05-18 02:33] VITALS: BP 94/54; PULSE 78; RESP 18
[2019-05-18] MEDS: VANCOMYCIN 1.25 GM/NS 250 ML 250 ML IVPB SCH (04:37)
[2019-05-18] MEDS: INSULIN ASPART [NOVOLOG] 3 ML PEN SC SCH ×4 (07:35→20:56)
[2019-05-18] MEDS: metFORMIN 500 MG TAB PO SCH ×2 (07:46→17:27)
[2019-05-18] MEDS: GABAPENTIN 100 MG CAP PO SCH ×2 (07:46→11:48)
[2019-05-18 08:00] VITALS: BP 88/51; PULSE 64; RESP 20
[2019-05-18 08:05] VITALS: BP 91/54; PULSE 68; RESP 18
[2019-05-18] MEDS: LISINOPRIL 20 MG TAB PO SCH (08:05)
[2019-05-18 08:59] VITALS: BP 116/60; PULSE 68; RESP 18
[2019-05-18] MEDS: DOCUSATE SODIUM 100 MG CAP PO SCH ×3 (09:00→20:55)
[2019-05-18] MEDS: ASPIRIN 81 MG TAB PO SCH (10:28)
[2019-05-18] MEDS: ENOXAPARIN 30 MG/0.3 ML SYG SC SCH (10:29)
[2019-05-18] MEDS: MUPIROCIN 2% 22 GM OINT TOP SCH ×2 (10:29→21:00)
[2019-05-18] MEDS: CAPSAICIN 0.025% 60 GM CR TOP SCH ×3 (10:30→21:00)
[2019-05-18] MEDS: BETAMETHASONE/CLOTRIMAZOLE 15 GM CR TOP SCH ×2 (10:30→21:01)
[2019-05-18] MEDS: HYDROCORTISONE 0.5% 28.35 GM CR TOP SCH ×2 (10:30→21:00)
[2019-05-18] MEDS ORDERED: SOD CHLORIDE 0.9% 250 ML IV ONE (13:30)
[2019-05-18 14:00] VITALS: BP 103/55; PULSE 63; RESP 19
[2019-05-18] MEDS: CEPHALEXIN 500 MG CAP PO SCH (17:27)
[2019-05-18] MEDS ORDERED: SOD CHLORIDE 0.9% 250 ML IV* SCH (18:00)
[2019-05-18 19:19] VITALS: BP 116/66; PULSE 67; RESP 18
[2019-05-18] MEDS: SENNA TAB PO SCH (20:55)
[2019-05-18] MEDS: GABAPENTIN 300 MG CAP PO SCH (20:55)
[2019-05-18] MEDS: ATORVASTATIN 80 MG TAB PO SCH (20:55)
[2019-05-18] MEDS: INSULIN GLARGINE [LANTus] (100 UNITS/ML) SYG SC SCH (21:04)
[2019-05-19] MEDS: CEPHALEXIN 500 MG CAP PO SCH ×4 (00:24→17:10)
[2019-05-19 02:00] VITALS: BP 112/58; PULSE 72; RESP 18
[2019-05-19] MEDS: ACCU-CHEK XX SCH (02:00)
[2019-05-19 07:30] VITALS: BP 111/59; PULSE 67; RESP 18
[2019-05-19] MEDS: INSULIN ASPART [NOVOLOG] 3 ML PEN SC SCH ×4 (07:35→21:00)
[2019-05-19] MEDS: GABAPENTIN 100 MG CAP PO SCH ×2 (08:01→11:55)
[2019-05-19] MEDS: metFORMIN 500 MG TAB PO SCH ×2 (08:02→17:10)
[2019-05-19] MEDS: DOCUSATE SODIUM 100 MG CAP PO SCH ×2 (09:00→21:00)
[2019-05-19] MEDS: ASPIRIN 81 MG TAB PO SCH (09:02)
[2019-05-19] MEDS: LISINOPRIL 20 MG TAB PO SCH (09:05)
[2019-05-19] MEDS: ENOXAPARIN 30 MG/0.3 ML SYG SC SCH (09:06)
[2019-05-19] MEDS: MUPIROCIN 2% 22 GM OINT TOP SCH ×2 (09:06→21:08)
[2019-05-19] MEDS: CAPSAICIN 0.025% 60 GM CR TOP SCH ×3 (09:06→21:08)
[2019-05-19] MEDS: BETAMETHASONE/CLOTRIMAZOLE 15 GM CR TOP SCH ×2 (09:06→21:08)
[2019-05-19] MEDS: HYDROCORTISONE 0.5% 28.35 GM CR TOP SCH ×2 (09:06→21:08)
[2019-05-19 14:00] VITALS: BP 107/62; PULSE 89; RESP 18
[2019-05-19 19:23] VITALS: BP 107/60; PULSE 80; RESP 18
[2019-05-19] MEDS: SENNA TAB PO SCH (21:00)
[2019-05-19] MEDS: ATORVASTATIN 80 MG TAB PO SCH (21:04)
[2019-05-19] MEDS: GABAPENTIN 400 MG CAP PO SCH (21:04)
[2019-05-20] MEDS: CEPHALEXIN 500 MG CAP PO SCH ×5 (00:33→23:20)
[2019-05-20 02:00] VITALS: BP 112/63; PULSE 77; RESP 18
[2019-05-20] MEDS: ACCU-CHEK XX SCH (02:00)
[2019-05-20] MEDS: HYDROCODONE/APAP (5/325) TAB NGT PRN ×2 (02:33→23:20)
[2019-05-20] MEDS: glipiZIDE 5 MG TAB PO SCH (07:05)
[2019-05-20] MEDS: INSULIN ASPART [NOVOLOG] 3 ML PEN SC SCH ×4 (07:35→20:16)
[2019-05-20] MEDS: GABAPENTIN 100 MG CAP PO SCH ×2 (07:45→12:00)
[2019-05-20] MEDS: metFORMIN 500 MG TAB PO SCH ×2 (07:45→17:33)
[2019-05-20 07:57] VITALS: BP 114/65; PULSE 78; RESP 18
[2019-05-20] MEDS: ENOXAPARIN 30 MG/0.3 ML SYG SC SCH (08:11)
[2019-05-20] MEDS: ASPIRIN 81 MG TAB PO SCH (08:12)
[2019-05-20] MEDS: DOCUSATE SODIUM 100 MG CAP PO SCH ×2 (08:12→20:09)
[2019-05-20] MEDS: LISINOPRIL 20 MG TAB PO SCH (08:12)
[2019-05-20] MEDS: CAPSAICIN 0.025% 60 GM CR TOP SCH ×3 (08:13→20:14)
[2019-05-20] MEDS: MUPIROCIN 2% 22 GM OINT TOP SCH ×2 (08:13→20:11)
[2019-05-20] MEDS: BETAMETHASONE/CLOTRIMAZOLE 15 GM CR TOP SCH ×2 (08:13→20:10)
[2019-05-20] MEDS: HYDROCORTISONE 0.5% 28.35 GM CR TOP SCH ×2 (08:13→20:11)
[2019-05-20 14:00] VITALS: BP 98/74; PULSE 74; RESP 18
[2019-05-20 20:00] VITALS: BP 96/62; PULSE 89; RESP 18
[2019-05-20] MEDS: ATORVASTATIN 80 MG TAB PO SCH (20:09)
[2019-05-20] MEDS: GABAPENTIN 400 MG CAP PO SCH (20:09)
[2019-05-20] MEDS: SENNA TAB PO SCH (20:16)
[2019-05-21] MEDS: ACCU-CHEK XX SCH (00:58)
[2019-05-21 02:13] VITALS: BP 106/68; PULSE 78; RESP 18
[2019-05-21] MEDS: CEPHALEXIN 500 MG CAP PO SCH ×4 (05:10→23:56)
[2019-05-21 07:30] VITALS: BP 96/56; PULSE 71; RESP 18
[2019-05-21] MEDS: INSULIN ASPART [NOVOLOG] 3 ML PEN SC SCH ×4 (07:35→21:00)
[2019-05-21] MEDS: metFORMIN 500 MG TAB PO SCH (08:26)
[2019-05-21] MEDS: glipiZIDE 5 MG TAB PO SCH (08:27)
[2019-05-21] MEDS: GABAPENTIN 100 MG CAP PO SCH ×2 (08:27→12:03)
[2019-05-21] MEDS: LISINOPRIL 20 MG TAB PO SCH (09:00)
[2019-05-21] MEDS: ASPIRIN 81 MG TAB PO SCH (10:50)
[2019-05-21] MEDS: DOCUSATE SODIUM 100 MG CAP PO SCH ×2 (10:50→21:00)
[2019-05-21] MEDS: ENOXAPARIN 30 MG/0.3 ML SYG SC SCH (10:51)
[2019-05-21] MEDS: MUPIROCIN 2% 22 GM OINT TOP SCH ×2 (10:52→21:05)
[2019-05-21] MEDS: BETAMETHASONE/CLOTRIMAZOLE 15 GM CR TOP SCH ×2 (10:53→21:07)
[2019-05-21] MEDS: HYDROCORTISONE 0.5% 28.35 GM CR TOP SCH ×2 (10:53→21:00)
[2019-05-21] MEDS: CAPSAICIN 0.025% 60 GM CR TOP SCH ×3 (10:54→21:07)
[2019-05-21 14:00] VITALS: BP 92/60; PULSE 85; RESP 20
[2019-05-21 20:00] VITALS: BP 107/60; PULSE 85; RESP 18
[2019-05-21] MEDS: SENNA TAB PO SCH (21:00)
[2019-05-21] MEDS: ATORVASTATIN 80 MG TAB PO SCH (21:02)
[2019-05-21] MEDS: GABAPENTIN 400 MG CAP PO SCH (21:02)
[2019-05-22] MEDS: HYDROCODONE/APAP (5/325) TAB NGT PRN (00:31)
[2019-05-22 01:41] VITALS: BP 114/59; PULSE 93; RESP 18
[2019-05-22] MEDS: ACCU-CHEK XX SCH (02:00)
[2019-05-22] MEDS: CEPHALEXIN 500 MG CAP PO SCH (06:33)
[2019-05-22] MEDS: INSULIN ASPART [NOVOLOG] 3 ML PEN SC SCH (07:35)
[2019-05-22] MEDS: glipiZIDE 5 MG TAB PO SCH (07:45)
[2019-05-22] MEDS: GABAPENTIN 100 MG CAP PO SCH ×2 (07:45→11:03)
[2019-05-22 08:21] VITALS: BP 111/61; PULSE 90; RESP 18
[2019-05-22] MEDS: ASPIRIN 81 MG TAB PO SCH (08:39)
[2019-05-22] MEDS: ENOXAPARIN 30 MG/0.3 ML SYG SC SCH (08:40)
[2019-05-22] MEDS: DOCUSATE SODIUM 100 MG CAP PO SCH (08:41)
[2019-05-22] MEDS: HYDROCORTISONE 0.5% 28.35 GM CR TOP SCH (08:43)
[2019-05-22] MEDS: MUPIROCIN 2% 22 GM OINT TOP SCH (08:43)
[2019-05-22] MEDS: CAPSAICIN 0.025% 60 GM CR TOP SCH (08:44)
[2019-05-22] MEDS: BETAMETHASONE/CLOTRIMAZOLE 15 GM CR TOP SCH (08:44)
[2019-05-22] MEDS ORDERED: metFORMIN 500 MG TAB PO SCH (10:00)
== END 2019-05-22 11:40 | disposition home health service (06) | DRG 57 ==
LOC: VRC 21:50
PROVIDERS: ADMIT Physical Medicine & Rehabilitation; ATTEND Internal Medicine Pulmonary Disease
DX: I69.351 Hemiplegia and hemiparesis following cerebral infarction affecting right dominant side (principal); L03.114 Cellulitis of left upper limb; N39.0 Urinary tract infection, site not specified; L02.414 Cutaneous abscess of left upper limb; I69.320 Aphasia following cerebral infarction; E87.6 Hypokalemia; E11.9 Type 2 diabetes mellitus without complications; I10 Essential (primary) hypertension; E78.5 Hyperlipidemia, unspecified; F17.200 Nicotine dependence, unspecified, uncomplicated; E66.9 Obesity, unspecified; Z68.30 Body mass index [BMI] 30.0-30.9, adult; E55.9 Vitamin D deficiency, unspecified; Z72.0 Tobacco use
CPT/HCPCS: 72148; 80053; 80202; 81003; 82565; 82962; 84520; 85025; 87070; 87081; 87086; 92507; 92523; 92526; 92610; 97110; 97112; 97116; 97163; 97167; 97530; 97535; 97542; J0696; J1650; J1815; J2270; J2405; J3370; J7040; J7042